=== PATIENT | male | born 1965 | race Caucasian/White ===

== ENCOUNTER → 2024-03-21 15:09 | Outpatient (BNVA) | payer MEDICARE, MEDICAID, SELFPAY | PROVIDERS: Family Provider Family Medicine; PCP Nurse Practitioner Family; Visit Provider Nurse Practitioner Family | DX: Z12.5 Encounter for screening for malignant neoplasm of prostate (principal); E11.9 Type 2 diabetes mellitus without complications; F31.9 Bipolar disorder, unspecified | CPT/HCPCS: 80053; 80061; 80164; 81000; 82607; 82746; 83036; 84443; 85025; G0103 ==

== ENCOUNTER → 2024-04-30 16:06 | Outpatient (BNVA) | payer MEDICARE, MEDICAID, SELFPAY | PROVIDERS: Family Provider Family Medicine; PCP Nurse Practitioner Family; Visit Provider Nurse Practitioner Family | DX: R39.9 Unspecified symptoms and signs involving the genitourinary system (principal) | CPT/HCPCS: 81000 ==

== ENCOUNTER → 2024-06-19 11:45 | Outpatient (BNVA) | payer MEDICARE, MEDICAID, SELFPAY | PROVIDERS: Family Provider Family Medicine; PCP Nurse Practitioner Family; Visit Provider Nurse Practitioner Family | DX: E11.9 Type 2 diabetes mellitus without complications (principal); E03.9 Hypothyroidism, unspecified | CPT/HCPCS: 80053; 80061; 83036; 84443; 85025 ==

== ENCOUNTER 2024-07-09 13:49 | Emergency (ER) | payer MEDICARE, MEDICAID, SELFPAY ==
[2024-07-09] VITALS (7 sets, daily range): BP systolic 119–139; BP diastolic 68–70; PULSE 62–85; RESP 16; TEMP 36.8; O2SAT 94–98; BMI 25.1
--- NOTE | 2024-07-09 14:09 | XR_ITS ---
WS: [id number] Exam: XR chest 1V portable [id number] Date/Time of Exam: 07/09/2024 2:16 PM Reason For Exam: weakness, hypotension No priors. The lungs are fully expanded. Eventration of the RIGHT diaphragm. No pleural effusion or pneumothorax. Normal cardiomediastinal silhouette. A tracheostomy tube is noted. Degenerative change and mild dextroscoliosis of the T-spine. XR/XR chest 1V portable [id number] IMPRESSION: 1. No acute cardiopulmonary finding.
--- NOTE | 2024-07-09 14:10 | ECG_ITS ---
[facility] Test Date: 2024-07-09 Pat Name: Travon Michelle Department: Room: Gender: Male Gynecological Assistant: : 1965 Requested By: Jigna Banerjee Order Number: [id number] Morales MD: Will Teran M.D. Measurements Intervals [place] Rate: 63 P: 42 GA: 146 QRS: -20 QRSD: 91 T: 15 QT: 401 QTc: 411 Interpretive Statements SINUS RHYTHM No previous ECG available for comparison Electronically Signed On 07-09-2024 14:55:22 CDT by Will Teran M.D. [id number] [id number]
[2024-07-09 14:16] LABS: Basophils % 0.4 %; Eosinophils % 0.7 %; Hematocrit 36.6 % (37-53); Lymphocytes # 0.9 10^3/uL (0.8-4.8); Lymphocytes % 15.7 %; Mean Corpuscular HGB Conc 34.4 g/dL (30-55); Mean Corpuscular Hemoglobin 32.9 pg (27-33); Mean Corpuscular Volume 95.6 fl (82-101); Mean Platelet Volume 9.2 fL (7.4-10.4); Monocytes # 0.5 10^3/uL (0.2-0.9); Neutrophils % 73.8 %; Nucleated Red Blood Cells % 0 %; Platelet Count 186 10^3/cmm (157-399); Red Blood Count 3.83 10^6/uL (3.85-5.65); Red Cell Distribution Width 13.2 % (12.1-15.1); White Blood Count 5.55 10^3/uL (3.29-11.43)
--- NOTE | 2024-07-09 14:20 | CT_ITS ---
WS: [id number] CT HEAD NONCONTRAST HISTORY: syncope? TECHNIQUE: Contiguous axial imaging performed through the brain. Bone and soft tissue windows. Sagittal and coronal reformats reviewed. All CT scans at [facility] use at least one of these dose optimization techniques: automated exposure control; mA and/or kV adjustment per patient size (includes targeted exams where dose is matched to clinical indication); or iterative reconstruction. DLP: 1108.48 mGy.cm COMPARISON: None available. No acute intracranial hemorrhage, midline shift or mass effect. Mild atrophy and small vessel disease. No acute infarct. Ventricles: Normal size with no hydrocephalus. No inferior displacement of the cerebellar tonsils. Paranasal sinuses: Tiny mucous retention cyst or polyp in the LEFT maxillary sinus. Mastoid air cells: Well pneumatized. Calvarium and scalp: Hyperostosis frontalis interna. CT/CT head wo con* [id number] IMPRESSION: 1. No acute intracranial hemorrhage or edema. 2. Mild atrophy and small vessel disease.
[2024-07-09 14:38] LABS: Troponin(5th) Baseline 13 ng/L (0-15)
[2024-07-09 14:46] LABS: Alanine Aminotransferase 15 U/L (0-41); Albumin Level 3.7 g/dL (3.5-5.2); Alkaline Phosphatase 46 U/L (40-130); Anion Gap 17.8 (5-19); Aspartate Amino Transferase 14 U/L (0-40); Blood Urea Nitrogen 9 mg/dL (8-23); Calcium 9.1 mg/dL (8.5-10.5); Carbon Dioxide 24 mmol/L (22-29); Chloride 96 mmol/L (98-107); Creatinine Clr Calc Pharmacy 100.4842; Globulin 2.3 g/dL (1.3-4.6); Glomerular Filtration Rate 98.3 mL/min (90-130); Glucose 258 mg/dL (65-115); NT Pro B Type Natriuretic Pept < 36 pg/mL (0-125); Osmolality Calculated 284 mOsm/kg (285-295); Potassium 4.8 mmol/L (3.5-5.1); Sodium 133 mmol/L (136-145); Thyroid Stimulating Hormone 0.48 uIU/mL (0.27-4.20); Total Bilirubin 0.3 mg/dL (0.15-1.2)
--- NOTE | 2024-07-09 15:17 | W.ED.SYNCOPE ---
HPI - Syncope General: Chief Complaint: Syncope Stated Complaint: kiara - low blood pressure Time Seen by Provider: 07/09/24 14:06 Source: patient, family (mother) and other (caregiver) Mode of arrival: EMS Limitations: other (cognitive delay) History of Present Illness: Patient is a 59-year-old male who comes from [facility] here with his mother who is his guardian as well as care staff for evaluation of a presyncopal episode. PMH is significant for cognitive delay, hypertension, diabetes, tracheostomy, bipolar, sleep apnea. Care staff states today while eating he seemed to slump over in his chair and was minimally responsive for a few seconds. He then came to and stated he needed to use the bathroom. Staff states she was walking him to the bathroom when he began feeling weak thus she lowered him to the ground and contacted 911. She did check the patient's blood sugar as he is a diabetic and sugars were 180s. Per EMS report, when they got to the patient's home he was hypotensive with blood pressures 80s/40s and heart rate in the 50s. He was reportedly bolused 700 mL of NS and given 1 mg of atropine. Upon arrival patient is in no acute distress with normal vital signs. He is at mental baseline per mother and caregiver. MD complaint: felt faint and almost passed out Onset (ago): hour(s) -: minutes(s) Witnessed: Yes - by Bystander (care staff) Context: at rest Injuries sustained associated with event: none Associated symptoms: Deny abdominal pain, chest pain, fever(s), headache(s) or lightheadedness Treatments prior to arrival: IV fluids and other (atropine) Related Data Home Medications ?Medication ?Instructions ?Recorded ?Confirmed hydroxyzine HCl 25 mg tablet 25 mg PO BID PRN ANXIETY 07/09/24 07/09/24 lisinopril 10 mg tablet 10 mg PO QAM 07/09/24 07/09/24 Previous Rx's ?Medication ?Instructions ?Recorded acetaminophen 325 mg capsule 650 mg (2 x 325 mg) PO Q4H PRN as 03/21/24 needed for pain or elevated temperature #60 caps benztropine 1 mg tablet 1 mg PO BID #60 tabs 03/21/24 calcium 600 mg (as 1 tab PO BID #180 tabs 03/21/24 carbonate)-vitamin D3 10 mcg (400 unit) tablet (Calcium with Vitamin D) divalproex 500 mg tablet,extended 500 mg PO BID #60 tabs 03/21/24 release 24 hr docusate sodium 100 mg capsule 100 mg PO DAILY #90 caps 03/21/24 fluticasone propionate 50 2 spray intranasal DAILY #16 grams 03/21/24 mcg/actuation nasal spray,suspension (Allergy Relief (fluticasone)) furosemide 20 mg tablet (Lasix) 20 mg PO QAM #90 tabs 03/21/24 levothyroxine 88 mcg capsule 88 mcg PO DAILY #90 caps 03/21/24 menthol 0.44 %-zinc oxide 20.6 % 1 applic topical QID PRN skin 03/21/24 topical ointment (Calmoseptine) irritation #113 grams metformin 1,000 mg tablet 1,000 mg PO BID #180 tabs 03/21/24 olanzapine 7.5 mg tablet 7.5 mg PO DAILY #90 tabs 03/21/24 potassium chloride 10 mEq 10 meq PO DAILY #90 tabs 03/21/24 tablet,extended release sodium chloride 0.9 % irrigation 1 irrig irrigation DAILY PRN trach 03/21/24 solution care #12,000 mL ziprasidone HCl 40 mg capsule 40 mg PO ONCE #30 caps 03/21/24 ziprasidone HCl 80 mg capsule 80 mg PO ONCE #30 caps 03/21/24 blood sugar diagnostic (True #300 ea 04/06/24 Metrix Glucose Test Strip) blood-glucose meter (True Metrix #1 ea 04/06/24 Glucose Meter) lancets 31 gauge (Ultra Thin #300 ea 04/06/24 Lancets) hydrogen peroxide 3 % solution 1 applic topical DAILY PRN trach 06/04/24 care #473 mL polyethylene glycol 3350 17 17 g PO DAILY PRN constipation 07/04/24 gram/dose oral powder (Miralax) #510 grams Allergies Allergy/AdvReac Type Severity Reaction Status Date / Time metronidazole (From Flagyl) Allergy Unknown Verified 07/04/24 10:23 carbamzepine Allergy Unknown Uncoded 07/04/24 10:23 ceclor Allergy Unknown Uncoded 07/04/24 10:23 Review of Systems Const: Denies: fever(s), chills, body aches, fatigue or malaise Eyes: Denies: change in vision, blurry vision, floaters or seeing flashes ENMT: Denies: throat pain, odynophagia, ear or mastoid pain, nasal discharge, nasal congestion or sinus pain Card: Reports: pre-syncope; Denies: chest pain, palpitations, edema, lightheadedness or dyspnea on exertion Resp: Denies: dyspnea, productive cough or non-productive cough GI: Denies: abdominal pain, vomiting, diarrhea or change in bowel habits : Denies: flank pain, dysuria or hematuria Musc: Denies: neck pain, back pain, extremity pain, extremity swelling, joint pain or joint swelling Skin/Breast: Denies: rash Neuro: Reports: other (at baseline per mother/caregiver); Denies: headache(s), numbness in extremities, weakness in extremities, sensory changes, lack of coordination, dizziness, confusion, behavioral changes or Slurred speech present [facility] ED PFSH: Medical History Type 2 diabetes mellitus Hypertension Hx of sleep apnea Tracheostomy tube present Bipolar affective disorder Disruptive behavior disorder Chronic allergic rhinitis Social History Smoking and tobacco/nicotine status: current every day tobacco/nicotine user (chew pouches) Physical Exam Const: COMMON NORMALS: no acute distress, average body habitus, healthy appearing, alert and well nourished GENERAL APPEARANCE: cooperative OTHER: at mental baseline per mother and caregiver HENMT: COMMON NORMALS: normocephalic and atraumatic HEAD & SCALP: normal to inspection, normocephalic and atraumatic FACE & SINUS: normal facial exam Eye: GENERAL EYE: appearance normal, both eyes and all related structures and normal light reflex DIRECT OPHTHALMOSCOPY: Yes normal light reflex Neck/C-Spine: COMMON NORMALS: full ROM, no lymphadenopathy, supple and no meningeal signs GENERAL: Yes normal visual inspection and Yes other (trach appears normal) Chest: COMMONS NORMALS: normal inspection of the chest and normal palpation of entire chest wall Resp: COMMON NORMALS: normal respiratory effort and clear to auscultation bilaterally AUSCULTATION: clear to auscultation bilaterally Cardio: COMMON NORMALS: regular rate and regular rhythm RATE: regular rate RHYTHM: regular rhythm GI: COMMON NORMALS: Normal to inspection, nondistended, normoactive bowel sounds present, Soft to palpation, non-tender, No hepatosplenomegaly present and no masses PALPATION: Yes Soft to palpation and Yes No hepatosplenomegaly present : COMMON NORMALS: Yes no CVA tenderness BLADDER/KIDNEY EXAM: Yes no CVA tenderness Back/Pelvis: COMMON NORMALS: no CVA tenderness and thoracic and lumbar spine normal to inspection Extremity: COMMON NORMALS: normal to inspection, capillary refill normal, no clubbing, cyanosis or edema, no calf tenderness and no pedal edema GENERAL: Yes normal exam except as noted Neuro: DAMEON COMA SCALE: document GCS findings [place] coma scale eye opening: Spontaneous [place] coma scale verbal response: Orientated Dameon coma scale motor response: Obey commands [place] coma scale total score: 15 COMMON NORMALS: moves all extremities, no focal motor deficits and no sensory deficits noted SENSORIUM/ORIENTATION: Yes alert MENINGEAL SIGNS: Yes no meningeal signs Skin: COMMON NORMALS: no rashes or lesions noted GENERAL SKIN EXAM: no rashes or lesions noted Course Vital Signs: Vital signs: Vital Signs Temperature 98.2 F 07/09/24 13:59 Pulse Rate 65 07/09/24 16:00 Respiratory Rate 16 07/09/24 16:00 Blood Pressure 132/68 07/09/24 15:03 Pulse Oximetry 98 07/09/24 15:03 Oxygen Delivery Me thod Room Air 07/09/24 14:47 Oxygen Flow Rate 2 07/09/24 13:59 MDM - Syncope Medical Decision Making Patient has been completely asymptomatic with normal vitals throughout his ED stay. His blood work overall is unremarkable. EKGs are nonconcerning. Baseline and repeat troponins are normal. Normal BNP. TSH is normal. CXR and head CT showing no acute findings. He will be allowed discharge with recommendations to follow-up with his primary care provider later this week. Medical Records I reviewed the patient's medical records. Lab Data I reviewed the patient's lab results. 07/09/24 14:10 07/09/24 14:10 Radiology Impressions Chest X-Ray 07/09/24 14:09 IMPRESSION: 1. No acute cardiopulmonary finding. Head CT 07/09/24 14:20 IMPRESSION: 1. No acute intracranial hemorrhage or edema. 2. Mild atrophy and small vessel disease. Laboratory Results WBC 5.55 10^3/uL (3.29-11.43) 07/09/24 14:10 RBC 3.83 10^6/uL (3.85-5.65) L 07/09/24 14:10 Hgb 12.60 g/dL (11.27-16.99) 07/09/24 14:10 Hct 36.6 % (37-53) L 07/09/24 14:10 MCV 95.6 fl (82-101) 07/09/24 14:10 MCH 32.9 pg (27-33) 07/09/24 14:10 MCHC 34.4 g/dL (30-55) 07/09/24 14:10 RDW 13.2 % (12.1-15.1) 07/09/24 14:10 Plt Count 186 10^3/cmm (157-399) 07/09/24 14:10 MPV 9.2 fL (7.4-10.4) 07/09/24 14:10 Neut % (Auto) 73.8 % 07/09/24 14:10 Lymph % (Auto) 15.7 % 07/09/24 14:10 Marion % (Auto) 9.0 % 07/09/24 14:10 Eos % (Auto) 0.7 % 07/09/24 14:10 Baso % (Auto) 0.4 % 07/09/24 14:10 Neut # (Auto) 4.10 10^3/uL (1.8-7.7) 07/09/24 14:10 Lymph # (Auto) 0.9 10^3/uL (0.8-4.8) 07/09/24 14:10 Marion # (Auto) 0.5 10^3/uL (0.2-0.9) 07/09/24 14:10 Eos # (Auto) 0.0 10^3/uL (0.0-0.8) 07/09/24 14:10 Baso # (Auto) 0.0 10^3/uL (0.0-0.1) 07/09/24 14:10 Nucleated RBC % (auto) 0 % 07/09/24 14:10 Nucleated RBCs # 0.0 /100WBC 07/09/24 14:10 Sodium 133 mmol/L (136-145) L 07/09/24 14:10 Potassium 4.8 mmol/L (3.5-5.1) 07/09/24 14:10 Chloride 96 mmol/L (98-107) L 07/09/24 14:10 Carbon Dioxide 24 mmol/L (22-29) 07/09/24 14:10 Anion Gap 17.8 (5-19) 07/09/24 14:10 BUN 9 mg/dL (8-23) 07/09/24 14:10 Creatinine 0.8 mg/dL (0.7-1.2) 07/09/24 14:10 GFR Calculation 98.3 mL/min (90-130) 07/09/24 14:10 Glucose 258 mg/dL (65-115) H 07/09/24 14:10 Calculated Osmolality 284 mOsm/kg (285-295) L 07/09/24 14:10 Calcium 9.1 mg/dL (8.5-10.5) 07/09/24 14:10 Total Bilirubin 0.3 mg/dL (0.15-1.2) 07/09/24 14:10 AST 14 U/L (0-40) 07/09/24 14:10 ALT 15 U/L (0-41) 07/09/24 14:10 Alkaline Phosphatase 46 U/L (40-130) 07/09/24 14:10 Troponin T Baseline 13 ng/L (0-15) 07/09/24 14:10 Troponin T 120 Minute 12.03 ng/L (0-15) 07/09/24 16:11 Delta Troponin T -0.97 ABS# (0-10) L 07/09/24 16:11 NT-Pro-B Natriuret Pep < 36 pg/mL (0-125) 07/09/24 14:10 Total Protein 6.0 g/dL (6.6-8.7) L 07/09/24 14:10 Albumin 3.7 g/dL (3.5-5.2) 07/09/24 14:10 Globulin 2.3 g/dL (1.3-4.6) 07/09/24 14:10 TSH 0.48 uIU/mL (0.27-4.20) 07/09/24 14:10 Urine Color Yellow (Yellow) 07/09/24 15:19 Urine Appearance Clear (CLEAR) 07/09/24 15:19 Urine pH 7.5 (5-7) 07/09/24 15:19 Ur Specific [place] 1.008 (1.005-1.030) 07/09/24 15:19 Urine Protein Trace (Negative) A 07/09/24 15:19 Urine Glucose (UA) 1+ (Normal) H 07/09/24 15:19 Urine Ketones Negative (Negative) 07/09/24 15:19 Urine Blood Negative (Negative) 07/09/24 15:19 Urine Nitrate Negative (Negative) 07/09/24 15:19 Urine Bilirubin Negative (Negative) 07/09/24 15:19 Urine Urobilinogen 0.2 mg/dL (Negative) 07/09/24 15:19 Ur Leukocyte Esterase Negative (Negative) 07/09/24 15:19 Urine RBC 0-2 /hpf (0-2) 07/09/24 15:19 Urine WBC 0-5 /hpf (0-5) 07/09/24 15:19 Ur Squamous Epith Cells 0-5 /hpf (0-5) 07/09/24 15:19 Amorphous Sediment Not Reportable 07/09/24 15:19 Urine Bacteria None seen /hpf (NONE) 07/09/24 15:19 Hyaline Casts 1.65 /lpf 07/09/24 15:19 Urine Opiates Screen Negative ng/mL (Negative) 07/09/24 15:19 Ur Barbiturates Screen Negative ng/mL (Negative) 07/09/24 15:19 Ur Phencyclidine Scrn Negative ng/mL (Negative) 07/09/24 15:19 Ur Amphetamines Screen Negative ng/mL (Negative) 07/09/24 15:19 U Benzodiazepines Scrn Negative ng/mL (Negative) 07/09/24 15:19 Urine Cocaine Screen Negative ng/mL (Negative) 07/09/24 15:19 U Marijuana (THC) Screen Negative ng/mL (Negative) 07/09/24 15:19 All radiology interpretation(s) finalized by discharge Discharge Plan Discharge Patient Disposition: Home Clinical Impression: Vasovagal syncope Condition: Stable Prescriptions: No Action calcium carbonate-vitamin D3 [Calcium with Vitamin D] 600 mg-10 mcg (400 unit) tablet 1 tab PO BID Qty: 180 1RF polyethylene glycol 3350 [Miralax] 17 gram/dose powder 17 g PO DAILY PRN (Reason: constipation) Qty: 510 5RF benztropine 1 mg tablet 1 mg PO BID Qty: 60 0RF Rx Instructions: Take 1 tablet by mouth 2 times a day for EPS divalproex 500 mg tablet extended release 24 hr 500 mg PO BID Qty: 60 0RF Rx Instructions: Take 1 tablet by mouth 2 times a day for bipolar affective disorder docusate sodium 100 mg capsule 100 mg PO DAILY Qty: 90 1RF Rx Instructions: Take 1 capsule by mouth every evening levothyroxine 88 mcg capsule 88 mcg PO DAILY Qty: 90 1RF Rx Instructions: take 1 tablet by mouth every day for hypothyroidism metformin 1,000 mg tablet 1,000 mg PO BID Qty: 180 1RF olanzapine 7.5 mg tablet 7.5 mg PO DAILY Qty: 90 1RF Rx Instructions: Take 1 tablet by mouth at bedtime ziprasidone HCl 80 mg capsule 80 mg PO ONCE Qty: 30 0RF Rx Instructions: give with food (meal/snack) at bedtime ziprasidone HCl 40 mg capsule 40 mg PO ONCE Qty: 30 0RF Rx Instructions: give with food (meal/snack)in am furosemide [Lasix] 20 mg tablet 20 mg PO QAM Qty: 90 1RF Rx Instructions: 1 tablet every am for edema potassium chloride 10 mEq tablet extended release 10 meq PO DAILY Qty: 90 1RF Rx Instructions: 1 tablet by mouth every am for potassium supplement fluticasone propionate [Allergy Relief (fluticasone)] 50 mcg/actuation spray,suspension 2 spray intranasal DAILY Qty: 16 5RF Rx Instructions: administer into each nostril menthol-zinc oxide [Calmoseptine] 0.44-20.6 % ointment 1 applic topical QID PRN (Reason: skin irritation) Qty: 113 5RF acetaminophen 325 mg capsule 650 mg PO Q4H PRN (Reason: as needed for pain or elevated temperature) Qty: 60 5RF sodium chloride 0.9 % solution 1 irrig irrigation DAILY PRN (Reason: trach care) Qty: 49077 5RF Rx Instructions: Use hydrogen peroxide & sodium cl for trach care as needed (DME) True Metrix Glucose Test Strip Strip See Rx Instructions .Route Qty: 300 3RF Rx Instructions: As directed (DME) blood-glucose meter [True Metrix Glucose Meter] Misc See Rx Instructions .Route Qty: 1 0RF Rx Instructions: As directed (DME) Ultra Thin Lancets 31 gauge misc See Rx Instructions .Route Qty: 300 3RF Rx Instructions: As directed hydrogen peroxide 3 % solution 1 applic topical DAILY PRN (Reason: trach care) Qty: 473 5RF Rx Instructions: Use with sodium chloride for trach care a needed. hydroxyzine HCl 25 mg tablet 25 mg PO BID PRN (Reason: ANXIETY ) lisinopril 10 mg tablet 10 mg PO QAM Rx Instructions: take one tab by mouth in am Discharge Orders: Discharge ED (Routine); Ordered 07/09/24 Ordered By: Jigna Banerjee Referrals: Florinda Rios FNP-C [Primary Care Provider, Family Practice] Activity Restrictions/Additional Instructions: As we discussed, blood work urine, and imaging including chest x-ray and head CT were unremarkable. Please follow-up with primary care later this week for reevaluation. You may return to the emergency department at anytime for any further concerns you may have. Print Language: Khmer Coding Level of Care Code ED Methane Gas Collection System Operator for Bret Wise
[2024-07-09 15:28] LABS: Bilirubin Urine Negative (Negative); Blood Urine Negative (Negative); Glucose Urine UA 1+ (Normal); Ketones Urine Negative (Negative); Leukocyte Esterase Urine Negative (Negative); Nitrate Urine Negative (Negative); Protein Urine Trace (Negative); Specific Gravity, Urine 1.008 (1.005-1.030); Urine Appearance Clear (CLEAR); Urine Color Yellow (Yellow); Urobilinogen Urine 0.2 mg/dL (Negative); pH Urine 7.5 (5-7)
[2024-07-09 15:34] LABS: Add Urine Microscopic? YES; Bacteria Urine None Seen /hpf; Hyaline Casts Urine 1.65 /lpf; RBC Urine 0-2 /hpf (0-2); Squamous Epithelial Cell Urine 0-5 /hpf (0-5); WBC Urine 0-5 /hpf (0-5)
[2024-07-09 15:35] LABS: Amphetamines Screen Urine Negative (Negative); Barbiturates Screen Urine Negative (Negative); Benzodiazepines Screen Urine Negative (Negative); Cocaine Screen Urine Negative (Negative); Opiate Screen Urine Negative (Negative); PCP Screen Urine Negative (Negative); THC Screen Urine Negative (Negative)
[2024-07-09 15:39] LABS: Add Urine Culture? No
--- NOTE | 2024-07-09 16:10 | ECG_ITS ---
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
[2024-07-09 16:43] LABS: Troponin 5 2HR 12.03 ng/L (0-15)
[2024-07-09 16:44] LABS: Troponin 5 2HR Delta -0.97 ABS# (0-10)
== END 2024-07-09 17:19 | disposition home or self-care (01) ==
PROVIDERS: Emergency Provider Physician Assistant; PCP Nurse Practitioner Family
DX: R55 Syncope and collapse (principal); Z79.84 Long term (current) use of oral hypoglycemic drugs; F17.290 Nicotine dependence, other tobacco product, uncomplicated; E11.9 Type 2 diabetes mellitus without complications; I10 Essential (primary) hypertension
CPT/HCPCS: 70450; 71045; 80053; 80306; 81001; 83880; 84443; 84484; 85025; 93005; 99285

== ENCOUNTER → 2024-08-16 09:42 | Outpatient (BNVA) | payer MEDICARE, MEDICAID, SELFPAY | PROVIDERS: PCP Nurse Practitioner Family; Visit Provider Nurse Practitioner Family | DX: J02.9 Acute pharyngitis, unspecified (principal) | CPT/HCPCS: 87071; 87880 ==

== ENCOUNTER → 2024-09-04 10:19 | Outpatient (BNVA) | payer MEDICARE, MEDICAID, SELFPAY | PROVIDERS: PCP Nurse Practitioner Family; Visit Provider Nurse Practitioner Family | DX: E11.9 Type 2 diabetes mellitus without complications (principal); E03.9 Hypothyroidism, unspecified; Z93.0 Tracheostomy status; J98.6 Disorders of diaphragm | CPT/HCPCS: 71046; 80053; 80061; 80164; 81000; 82043; 83036; 84443; 85025 ==

== ENCOUNTER 2024-09-15 22:44 | Emergency (ER) | payer MEDICARE, MEDICAID, SELFPAY ==
--- OUTSIDE RECORDS SUMMARY | 2024-09-15 22:50 | XMS_ITS | Clinical Summary ---
Author Organization [facility] Address [address] [place] [address] Phone Care Team Providers Care Aoc Director Combat Operations Officer Name Role Phone System, Pcp Not In Primary Care Provider Unavail able Allergies Active Allergy Reactions Criticality Noted Date Comments Carbamazepine Rash Low 04/27/2016 Cefaclor Unknown 12/07/2017 Metronidazole Rash Low 04/27/2016 Encounters Date Type Department Care Team Description 07/19/2024 Orders Only [facility] Neurology [address] [place] [address] Florinda Rios Confusion (Primary Dx) 07/17/2024 Orders Only [facility] Neurology [address] [place] [id number] System, Pcp Not In Confusion; Disorientation 06/21/2024 3:36 PM CDT - 06/21/2024 6:32 PM CDT Emergency [facility] Emergency Department [address] [place] [address] Emilio Castrejon MD Confusion; Difficulty urinating Discharge Disposition: Home 06/21/2024 Travel from Last 3 Months Social History Tobacco Use Types Packs/Day Years Used Date Smoking Tobacco: Never Smokeless Tobacco: Never Tobacco Cessation:Counseling Given: Not Answered Alcohol Use Standard Drinks/Week Comments Never 0 (1 standard drink = 0.6 oz pur e alcohol) Intimate Partner Safety Answer Date Rec orded Feels Unsafe at Home or Work/School Unrecognized value 06/21/2024 Feels Threatened by Someone Unrecognized value 0 06/21/2024 Does Anyone Try to Keep You From Having Contact with Others or Doing Things Outside Your Home? Unrecognized value 06/21/2024 Physical Signs of Abuse Present Unrecognized derek ue 06/21/2024 Intimate Partner Safety Not on file 06/22/19 25 Sex and Gender Information Value Date Recorded Sex Assigned at Not on file Legal Sex Male 2:13 PM CDT Gender Identity Not on file Sexual Orientation Not on file Last Filed Vital Signs Vital Sign Reading Time Taken Comments Blood Pressure 134/81 06/21/2024 2:48 PM CDT Pulse 74 06/21/2024 2:48 PM CDT Temperature 37.2 C (98.9 F) 06/21/2024 2:48 PM CDT Respiratory Rate 18 06/21/2024 2:48 PM CDT Oxygen Saturation 100% 06/21/2024 2:48 PM CDT Inhaled Oxygen Concentration - - Weight 95.3 kg (210 lb) 06/21/2024 2:48 PM CDT Height 175.3 cm (5' 9 ) 06/21/2024 2:48 PM CDT Body Mass Index 31.01 06/21/2024 2:48 PM CDT Plan of Treatment Health Maintenance Due Date Last Done Comments Colonoscopy Every 6 Months 1963 Colorectal Cancer Screening Annual FOBT/FIT Test 03/03 Colorectal Cancer Screening Cologuard 1965 Colorectal Cancer Screening Flex Sigmoidoscopy 964 Annual Depression Screening 1974 Hepatitis C Antibody Screen 1981 Medicare Subsequent AWV [id number] 08/28/1985 DTap/Tdap/Td Vaccines (1 - Tdap) 05/13/1998 05/12/18 99 Colorectal CA Screen 10 Year Colonoscopy 2008 Colorectal Cancer Screening 2008 Zoster Vaccine (Shingles) (1 of 2) 2013 Influenza Vaccine 10/29/2024 RSV Immunization Pa tients or 60+ Years (1 - 1-dose 75+ series) 2038 Pneumococcal Vaccine Age 50+ Completed 09/24/2021 Procedures Procedure Name Priority Date/Time Associated Diagnosis Comments CT HEAD WO CONTRAST STAT 06/21/2024 5 :35 PM CDT URINALYSIS WITH MICROSCOPIC AND CULTURE IF POSITIVE STAT 06/21/2024 3:46 PM CDT from Last 3 Months Results * CT Head Without Contrast (06/21/2024 5:35 PM CDT) Anatomical Region Laterality Modality Head Computed Tomogra phy 06/21/2024 5:38 PM CDT Impressions 06/21/2024 5:39 PM CDT IMPRESSION: No acute intracranial abnormality. Narrative 06/21/2024 5:39 PM CDT PATIENT: ALEAH HOLLINGSWORTH EXAM: CT HEAD WO CONTRAST CLINICAL INFORMATION: Mental status change, unknown cause, AMS COMPARISON: None TECHNIQUE: Dose reduction techniques were utilized for this exam including automated exposure control, adjustments to mA and/or kV according to patient size, and iterative reconstruction techniques. FINDINGS: Intracranial Hemorrhage: None. 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 Age-appropriate generalized volume loss. Extra-Axial Spaces: Normal for age. Ventricles: Normal for age. Orbits: Normal. Paranasal Sinuses: Normal. Mastoid Air Cells: Normal. Skull/Soft Tissues: Normal. Procedure Note Tyrone Marrero, DO - 06/21/2024 PATIENT: ALEAH HOLLINGSWORTH EXAM: CT HEAD WO CONTRAST CLINICAL INFORMATION: Mental status change, unknown cause, AMS COMPARISON: None TECHNIQUE: Dose reduction techniques were utilized for this exam including automated exposure control, adjustments to mA and/or kV according to patient size, and iterative reconstruction techniques. FINDINGS: Intracranial Hemorrhage: None. 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 Age-appropriate generalized volume loss. Extra-Axial Spaces: Normal for age. Ventricles: Normal for age. Orbits: Normal. Paranasal Sinuses: Normal. Mastoid Air Cells: Normal. Skull/Soft Tissues: Normal. IMPRESSION: No acute intracranial abnormality. us Emilio Castrejon MD CT IMG ORDERABLES Final Result * (ABNORMAL) UA Auto Microscopic with CX if Indicated (06/21/2024 3:46 PM CDT) Color UA Yellow Yellow 06/21/2024 4:07 PM CDT [facility] Clarity UA Clear Clear 06/21/2024 4:07 PM [facility] pH UA 7.0 5.0 - 8.0 06/21/2024 4:07 PM [facility] Specific [place] UA 1.015 1.005 - 1.030 06/21/2024 4:07 PM [facility] Glucose UA 2+(A) Negative 06/21/2024 4:07 PM [facility] Ketones UA Negative Negative 06/21/2024 4:07 PM [facility] Bilirubin UA Negative Negative 06/21/2024 4:07 PM [facility] Protein UA Negative Negative 06/21/2024 4:07 PM [facility] Leukocyte Esterase UA Negative Negative 06/21/2024 4:07 PM [facility] Nitrite UA Negative Negative 06/21/2024 4:07 PM [facility] Blood UA Negative Negative 06/21/2024 4:07 PM [facility] Urobilinogen UA 0.2 0.2 - 1.0 E.U./dL 06/21/2024 4:07 PM [facility] RBC UA 3.2 <=23.0 RBC/ul 06/21/2024 4:07 PM [facility] WBC UA 4.2 <=28.0 WBC/ul 06/21/2024 4:07 PM [facility] Squamous Epithelial Cells UA <1.4 <=31.0 Epi/ul 06/21/2024 4:07 PM [facility] Hyaline Casts UA <1.41 <=2.00 Nuclear Equipment Sales Engineer/ul 06/21/2024 4:07 PM [facility] Bacteria UA 9.1 <=941.0 Arturo/ul 06/21/2024 4:07 PM [facility] Urine URINE SPECIMEN OBTAINED BY CLEAN CATCH PROCEDURE / Unknown Collection / Unknown 06/21/2024 3:46 PM CDT 06/21/2024 3:47 PM CDT us Emilio Castrejon MD URINE ORDERABLES Final R esult [facility] [place] [address], [place] [address] from Last 3 Months Insurance [place]ICAID [place] Care Teams Aoc Director Combat Operations Officer Relationship Specialty Start Date End Date System, Pcp Not In PCP - General 07/19/24
--- OUTSIDE RECORDS SUMMARY | 2024-09-15 22:50 | XMS_ITS | Encounter Summary ---
Author Organization [facility] Address [address] [facility] [place] [address] Phone Care Team Providers Care Legal Aid Name Role Phone System, Pcp Not In Primary Care Provider Unavail able Encounter Details Date Type Department Care Team (Late st Contact Info) Description 07/17/2024 Orders Only [facility] Neurology [address] [place] [address] System, Pcp Not In Confusion; Disorientation Social History Tobacco Use Types Packs/Day Years Used Date Smoking Tobacco: Never Smokeless Tobacco: Never Alcohol Use Standard Drinks/Week Comments Never 0 [...] Intimate Partner Safety Not on file 06/22/19 Sex and Gender Information Value Date Recorded Sex Assigned at Not on file Legal Sex Male 2:13 PM CDT Gender Identity Not on file Sexual Orientation Not on file documented as of this encounter Plan of Treatment Not on file documented as of this encounter Visit Diagnoses Diagnosis Confusion Unspecified psychosis Disorientation Other general symptoms documented in this encounter Care Teams Legal Aid Relationship Specialty Start Date End Date System, Pcp Not In PCP - General 07/19/24 documented as of this encounter
--- OUTSIDE RECORDS SUMMARY | 2024-09-15 22:50 | XMS_ITS | Data Portability ---
Author Organization [facility]UL[facility] Denis Hubbard [facility] Address [address] [facility] [facility] [address] [place] [address] Assessment No assessment recorded. Plan of Treatment Reminders Order Date Submit Date Provider Last Modified By Organization Details Last Modified Time Details Appointments None recorded. Lab urinalysis , dipstick 2024 025 [email or web address] [facility] ([facility]), [address] [place], [address], 17:49:04 culture, urine 2024 025 [facility], [address] [place] [address], [facility] [address] [place], [address], 22:46:30 Referral None recorded. Procedures None recorded. Surgeries None recorded. Imaging None recorded. Medication Orders None recorded. Patient TargetsNo targets recorded. Patient InstructionsNo instructions recorded. Reason for Referral None Reported. Results Created Date Observation Date Name Description Value Unit Range Abnormal Flag Note LastModifiedBy Organization Detail LastModifiedTime 06/06/1906/05/2024 urina lysis , dipst ick Leukocytes Negati ve Not Available [facility] ([facility]) [address] [place], [address], 06/05/2024 17:29:09 06/06/19 25 06/05/2024 urina lysis , dipst ick Nitrite negati ve Not Available [facility] ([facility]) [address] [place], [address], 06/05/2024 17:29:09 06/06/19 25 06/05/2024 urina lysis , dipst ick Urobilinogen .2 Not Available [facility] ([facility]) [address] [place], [address], 06/05/2024 17:29:09 06/06/19 25 06/05/2024 urina lysis , dipst ick Protein Negati ve Not Available [facility] ([facility]) [address] [place], [address], 06/05/2024 17:29:09 06/06/19 25 06/05/2024 urina lysis , dipst ick pH 6.0 Not Available [facility] ([facility]) [address] [place], [address], 06/05/2024 17:29:09 06/06/19 25 06/05/2024 urina lysis , dipst ick Blood Negati ve Not Available [facility] ([facility]) [address] [place], [address], 06/05/2024 17:29:09 06/06/19 25 06/05/2024 urina lysis , dipst ick Specific Tebbetts 1.025 Not Available [facility] ( [facility]) [address] [place], [address], 06/05/2024 17:29:09 06/06/19 25 06/05/2024 urina lysis , dipst ick Ketone Trace Not Available [facility] ([facility]) [address] [place], [address], 06/05/2024 17:29:09 06/06/19 25 06/05/2024 urina lysis , dipst ick Bilirubin Negati ve Not Available [facility] ([facility]) [address] [place], [address], 06/05/2024 17:29:09 06/06/19 25 06/05/2024 urina lysis , dipst ick Glucose 500 Not Available [facility] ([facility]) [address] [place], [address], 06/05/2024 17:29:09 06/07/19 25 06/07/2024 CULTU RE, URINE , ROUTI NE culture, urine, routine SEE NOTE CULTU RE, URINE , ROUTI NE Micro Numbe r: [id number] Test Statu s: Final Speci men Sourc e: Urine Speci men Quali ty: Adequ ate Resul t: Mixed genit al trista isola anastacia. These super ficia l bacte ju are not indic ative of a urina ry tract infec tion. No furth er organ ism ident ifica tion is warra nted on this speci men. If clini michelle indic ated, recol lect clean -catc h, mid-s tream urine and trans rayna immed iatel y to Urine Cultu re Trans port Tube. Not Available [facility] [address] [place], [address], 06/07/2024 22:46:29 Result Notes None recorded. Medical Equipment None Reported. Allergies No known drug allergies Medications Name Sig Start Date Stop Date Status Note LastModified by Organization Details LastModified Time sodium chloride 0.9 % irrigation solution USE hydrogen peroxide and sodium chloride FOR trach care daily NEEDED via irrigatio n active Not Available Not Available No t Available hydroxyzine HCl 25 mg tablet TAKE ONE TABLET BY MOUTH TWICE DAILY NEEDED & TAKE ONE TABLET DAILY AT NOON active Not Available Not Available No t Available ziprasidone 40 mg capsule Take 1 capsule twice a day by oral route. active Not Available Not Available No t Available polyethylen e glycol 3350 17 gram/dose oral powder Dissolve 1 capful in 8 ounces of liquid and drink ONCE daily active Not Available Not Available No t Available amoxicillin 875 mg-potassiu m clavulanate 125 mg tablet TAKE ONE TABLET BY MOUTH TWICE DAILY FOR 10 DAYS 06/05 completed Not Available Not Available Not Available levothyroxi ne active Not Available Not Available Not Available olanzapine active Not Available Not Av ailable Not Available benztropine active Not Available Not A vailable Not Available furosemide active Not Available Not Av ailable Not Available divalproex active Not Available Not Av ailable Not Available lisinopril active Not Available Not Av ailable Not Available potassium active Not Available Not Alma Delia ilable Not Available metformin active Not Available Not Alma Delia ilable Not Available menthol 0.44 %-zinc oxide 20.6 % topical ointment APPLY TO THE AFFECTED AREA(S) topically FOUR TIMES DAILY NEEDED FOR SKIN irritatio n 06/05 completed Not Available Not Available Not Available TRUEplus Lancets 30 gauge USE DIRECTED active Not Available Not Available No t Available True Metrix Glucose Test Strip USE DIRECTED active Not Available Not Available No t Available True Metrix Glucose Meter USE DIRECTED active Not Available Not Available No t Available Flonase Allergy Relief active Not Available Not Available Not Available Ozempic active Not Available Not Avail able Not Available Ozempic 1 mg/dose (4 mg/3 mL) subcutaneou s pen injector inject 1mg SUBCUTANE OUSLY ONCE WEEKLY ON active Not Available Not Available No t Available Vitals Date Recorded Body height Body mass index (BMI) Body weight Oxygen saturation Oxygen saturation in Arterial blood by Pulse oximetry Heart rate Respiratory rate Body temperature Systolic And Diastolic Provider Name and Address Organization Details Last Updated DateTime 175.26 cm 30 kg/m2 78985.2 5 g 96 % 96 % 79 /min 16 /min 98.2 [degF] 160/80 mm[Hg] Swapna Flynn [facility] 17:36:31 Social History None recorded. Functional Status None recorded. Mental Status None recorded. Family History Nothing Reported. Medical History No medical history recorded. Past Encounters Encounter ID Performer Location Encounter Start Date Encounter Closed Date Diagnosis/Indication Diagnosis SNOMED-CT Code Diagnosis ICD10 Code Diagnosis Note [id number] [facility]AN ROS[facility] ([facility]) [address] [place] [address] 06/05/2024 17:20:12 06/05/2024 17:55:54 Dysuria 04986955 R30.0 Chronic back pain 446835 002 G89.29 No signs of urinary tract infection. Pt is to keep appt with PCP tomorrow for further work up regarding chronic back pain. Health Concerns Section Related Observation LastModified by Organization Detai ls LastModified Time None Recorded Concern Status LastModified by Organization Details LastModified Time None Recorded Advance Directives Directive None Recorded Payers Insurance Date Sequence Insurance Name Policy Number Policy Berger Covered Member ID Berger Member ID Guarantor Name 06/06/2024 2 [place] Travon Valladares Michelle [id number] [facility] Michelle Benjamin 06/06/2024 1 [place] Travon Valladares Michelle [id number] [facility] Michelle Benjamin 06/06/2024 [place] A - 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 Patient said that he has had back pain for many years. no meds administered. no change to chronic back pain. pt has appt with PCP tomorrow. Pt's mother wanted to make sure the pain was not caused from a UTI. pt deneis any urinary symptoms. RAINER MOY, HOTBED TRANSFER OPERATOR[address], [address], [facility] 06/05/2024 17:52:54
--- OUTSIDE RECORDS SUMMARY | 2024-09-15 22:50 | XMS_ITS | Data Portability ---
Author Organization [place] - [facility] [place], ADMIN Address [address] [place] [address] Assessment Encounter Date Assessment Date Assessment LastModified by Organization Details LastModified Time 04/13/2022 04/13/2022 57 y/o male hx of trach- in 1998 for severe LEE , management of trach care, LEE 1. Trach care: Patient instructed to clean inner cannula of trach BID with brush and water. 2. Decannulation Plan: Patient is tolerating capping 24/7 with no problems Patient and caregiver advised to move cap if patient is unable to tolerate immediately. Rx 6CFS. Patient is continuing to keep trach capped 24/7 with no difficulties. NEVER THE LESS THE MOTHER IS CONCERNED ABOUT REMOVE THE TRACHEOSTOMY TUBE AND WILL NOT CONSENT TODAY. PER HER REQUEST WE will obtain a written physician report, from his facility, prior to considering decannulation. 4. Additionally, we will order a sleep study with the trach capped to assess the patient's obstructive sleep apnea. After that, we will see the patient in 6 months and discussed with the mother the possibility to decannulate or maintain the tracheostomy tube, according to the sleep study results. The mother is making decisions for Mr. Travon Michelle. RTC in 6 months I Cristian Tuttle, acting as a scribe for Long Escobar MD to document his verbalization of the History of Present Illness, Physical Exam, Assessment and Plan. Cristian Tuttle, Scribe, 04/13/2022 1:33 pm I Long Escobar MD, hereby attest I personally performed and dictated the services documented in the History of Present, Illness, Physical Exam, Assessment and Plan and agree the documentation accurately represents these services and the decisions I made. I also reviewed the documented Review of Systems and the Past, Family, and Social History made changes and/or additions as needed. Long Escobar MD, [email or web address] Not available 04/13/2022 14:37:21 03/11/2023 03/11/2023 58 y/o male hx of trach- in 1998 for severe LEE, management of trach care, LEE Exam: Granulations around the trach; 5mm granulation to the peristomal region 1. Trach care: Patient instructed to clean inner cannula of trach BID with brush and water. 2. Decannulation Plan: Patient is tolerating capping 24/7 with no problems Patient and caregiver advised to move cap if patient is unable to tolerate immediately. 4. Granulations of trach: Will cauterize the granulation tissue, today. Attention given to the peristomal granulation; it was cauterized with silver nitrate. Reduced the 5mm granulation with silver nitrate. Placed triamcinolone ointment to the peristomal granulation. Patient tolerated well. Rx Triamcinolone ointment to use a small amount with a q-tip TID to the peristomal granulation nodule. RTC in 2 weeks I Ирина Adair, acting as a scribe for Long Escobar MD to document his verbalization of the History of Present Illness, Physical Exam, Assessment and Plan. Ирина Adair, Francieibe, 03-11-23 15:18 I Long Escobar MD, hereby attest I personally performed and dictated the services documented in the History of Present, Illness, Physical Exam, Assessment and Plan and agree the documentation accurately represents these services and the decisions I made. I also reviewed the documented Review of Systems and the Past, Family, and Social History made changes and/or additions as needed. Long Escobar MD, [email or web address] Not available 03/11/2023 16:24:25 03/25/2023 03/25/2023 58 y/o male hx of trach- in 1998 for severe LEE, management of trach care, LEE Exam: Granulations around the trach; 2mm granulation to the peristomal region 1. Trach care: Patient instructed to clean inner cannula of trach BID with brush and water. 2. Decannulation Plan: Patient is tolerating capping 24/7 with no problems Patient and caregiver advised to move cap if patient is unable to tolerate immediately. 4. Granulations of trach: Patient presents with improvement to the granulations of his stoma. Rx Triamcinolone ointment TID for 2 more weeks. Will reassess in 2 more weeks. RTC in 2 weeks I Ирина Adair, acting as a scribe for Long Escobar MD to document his verbalization of the History of Present Illness, Physical Exam, Assessment and Plan. Padmini Alcaraz, 03-25-23 10:57am I Long Escobar MD, hereby attest I personally performed and dictated the services documented in the History of Present, Illness, Physical Exam, Assessment and Plan and agree the documentation accurately represents these services and the decisions I made. I also reviewed the documented Review of Systems and the Past, Family, and Social History made changes and/or additions as needed. Long Escobar MD, [email or web address] Not available 03/25/2023 11:57:12 04/08/2023 04/08/2023 58 y/o male hx of trach- in 1998 for severe LEE, management of trach care, LEE Exam: Granulation around the trach; 1mm granulation to the peristomal region 1. Trach care: Patient instructed to clean inner cannula of trach BID with brush and water. 2. Decannulation Plan: Patient is tolerating capping 24/7 with no problems Patient and caregiver advised to move cap if patient is unable to tolerate immediately. Rx 6CFS. 4. Granulation of trach: Patient presents with significant improvement to the granulation of his stoma. Attention given to the peristomal granulation; it was cauterized with silver nitrate. Reduced the 1mm granulation with silver nitrate. Placed triamcinolone ointment to the peristomal granulation. Patient tolerated well. RTC in 4 weeks for trach change I Ирина Adair, acting as a scribe for Long Escobar MD to document his verbalization of the History of Present Illness, Physical Exam, Assessment and Plan. Padmini Alcaraz, 04-08-23 12:41pm I Long Escobar MD, hereby attest I personally performed and dictated the services documented in the History of Present, Illness, Physical Exam, Assessment and Plan and agree the documentation accurately represents these services and the decisions I made. I also reviewed the documented Review of Systems and the Past, Family, and Social History made changes and/or additions as needed. Long Escobar MD, [email or web address] Not available 04/08/2023 13:46:13 05/10/2023 05/10/2023 58 y/o male hx of trach- in 1998 for severe LEE, management of trach care, LEE Exam: Granulation around the trach; 1mm granulation to the peristomal region, Change tracheostomy tube to 6 cm fast, patient tolerated and postprocedure bronchoscopy confirmed appropriate placement 1. Trach care: Patient instructed to clean inner cannula of trach BID with brush and water. 2. Decannulation Plan: Patient is tolerating capping / with no problems Patient and caregiver advised to move cap if patient is unable to tolerate immediately. 4. Granulation of trach: Patient presents with significant improvement to the granulation of his stoma. Attention given to the peristomal granulation; it was cauterized with silver nitrate, previously. 5. Attention to tracheostomy: Patient's trach was changed, today. Patient tolerated well. 6. I disclosed/discus sed with the patient that I will be leaving my position soon. I discussed that I could refer them to Dr. Samaniego in [place] for further management/inter vention. I Ирина Adair, acting as a scribe for Long Escobar MD to document his verbalization of the History of Present Illness, Physical Exam, Assessment and Plan. Ирина Adair, Scribe, 05-10-23 15:09 I Long Escobar MD, hereby attest I personally performed and dictated the services documented in the History of Present, Illness, Physical Exam, Assessment and Plan and agree the documentation accurately represents these services and the decisions I made. I also reviewed the documented Review of Systems and the Past, Family, and Social History made changes and/or additions as needed. Long Escobar MD, [email or web address] Not available 05/10/2023 16:31:08 Plan of Treatment Reminders Order Date Submit Date Provider Last Modified By Organization Details Last Modified Time Details Appointments None recorded . Lab None recorded . Referral otolaryn gologist referral - Trach was changed 05/10/232023 024 [facility], [address], [place], [place], [address], 4 15:41:56 Procedures None recorded . Surgeries None recorded . Imaging None recorded . Medication Orders triamcin olone acetonid e 0.1 % topical ointment [address] [facility], [address] [place], [address], 4 09:20:56 triamcin olone acetonid e 0.1 % topical ointment [address] [facility], [address] [place], [address], 4 11:35:45 Patient TargetsNo targets recorded. Patient Instructions Encounter Date Encounter Id Patient Instructions Last Modified By Organization Details Last Modified Time 03/11/2023 [id number] 1. I have reviewed the patient's new referral from their PCP regarding a growth of his trach. 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 Procedures Surgical History Date Name Laterality Status Provider Name and Address Organization Details Recorded Time 2023 Tracheobroncoscopy - Dr. Vinnie ESCOBAR MD [address] [facility], [place], [address], [place] - [address] 4 16:30:32 2023 Blank Procedure Template completed Yasir Adair [place] - [facility] [place] 4 16:24:38 2022 Tracheobroncoscopy - Dr. [place] completed Cristian Tuttle [place] [facility] [place] 3 14:34:15 2021 Tracheobroncoscopy - Dr. [place] completed Cristian Tuttle [place] [facility] [place] 2 15:45:00 2021 Tracheobroncoscopy - Dr. [place] completed Cristian Tuttle [place] [facility] [place] 2 14:31:11 2021 Tracheobroncoscopy - Dr. [place] completed Cristian Tuttle [place] [facility] [place] 2 15:50:11 2021 Flexible Fiberoptic Nasopharyngolaryngoscopy completed FosterKayley Tuttle [place] [facility] [place] 2 14:30:23 2021 Tracheobroncoscopy - Dr. [place] completed Cristian Tuttle [place] [facility] [place] 2 14:30:18 Cholecystectomy completed Neyda Cruz lpn [place] [facility] [place] 8 12:05:23 Other completed Neyda Cruz lpn [place] [facility] [place] 8 12:05:43 Imaging Results None recorded. Procedure Notes None recorded. Medical Equipment None Reported. Allergies Allergen ID Allergen Name Allergen Category Reaction Reaction Severity Criticality Documentation Date Start Date Code Code System Note Provider Name and Address Organization Details Recorded Time 96655 cefaclor medicatio n Not available Not available Not available 10/27/2017 2176 RxNorm Rebel Thompson LPN null, [place] - [facility] [place] 8 14:57:16 78077 Tegretol medicatio n Not available Not available Not available 10/27/201720292 9 RxNorm Rebel Thompson LPN [place], [place] [facility] [place] 8 14:57:24 09994 metronida zole medicatio n Not available Not available Not available 10/27/2017 6922 RxNorm Rebel Thompson [employer] null, [place] - [facility] [place] 8 14:57:47 Medications Name Sig Start Date Stop Date Status Note LastModified by Organization Details LastModified Time contour strips USE TO CHECK BLOOD SUGAR DAILY active Not Available Not Available No t Available ziprasidone 80 mg capsule active Not Available Not Available Not Available metformin 500 mg tablet TAKE 2 TABLETS BY MOUTH EVERY MORNING, THEN TAKE 1 TABLET BY MOUTH AT BEDTIME active Not Available Not Available No t Available azithromyci n 250 mg tablet TAKE 2 TABLETS BY MOUTH ON DAY 1, THEN TAKE 1 TABLET DAILY ON DAYS 2-5 active Not Available Not Available No t Available divalproex 500 mg tablet,ryile yed release Take 1 tablet 3 times a day by oral route. active Not Available Not Available No t Available olanzapine 2.5 mg tablet Take 1 tablet every day by oral route. active Not Available Not Available No t Available olanzapine 7.5 mg tablet active Not Available Not Available Not Available acetaminoph en 650 mg tablet Take 1 tablet every 6 hours by oral route as needed. active Not Available Not Available No t Available levothyroxi ne 88 mcg tablet Take 1 tablet every day by oral route. active Not Available Not Available No t Available metformin 1,000 mg tablet TAKE 1 TABLET BY MOUTH TWICE DAILY active Not Available Not Available No t Available triamcinolo ne acetonide 0.1 % topical ointment apply very small amount to area of granulati on tissue at trach site tid for 2 weeks 2023 active Not Available Not Available Not Avai lable lisinopril 10 mg tablet active Not Available Not Available Not Available divalproex ER 500 mg tablet,exte nded release 24 hr TAKE 1 TABLET BY MOUTH TWICE DAILY active Not Available Not Available No t Available benztropine 1 mg tablet TAKE 1 TABLET BY MOUTH TWICE DAILY FOR EPS active Not Available Not Available No t Available docusate sodium 100 mg capsule TAKE 1 CAPSULE BY MOUTH TWICE DAILY FOR CONSTIPAT ION active Not Available Not Available No t Available mupirocin 2 % topical ointment active Not Available Not Available Not Available ziprasidone 40 mg capsule Take 1 capsule every day by oral route. active Not Available Not Available No t Available polyethylen e glycol 3350 17 gram/dose oral powder MIX 17GMS OF POWDER WITH EIGHT OUNCE OF WATER AND TAKE BY MOUTH DAILY active Not Available Not Available No t Available fluticasone propionate 50 mcg/actuati on nasal spray,suspe nsion INSTILL 1 SPRAY IN EACH NOSTRIL DAILY FOR ALLERGIC RHINITIS/ CONGESTIO N active Not Available Not Available No t Available Depakene 250 mg capsule Take 1 capsule every day by oral route at noon. 04/13 completed Not Available Not Available Not Available amoxicillin 875 mg-potassiu m clavulanate 125 mg tablet TAKE 1 TABLET BY MOUTH TWICE DAILY FOR SEVEN DAYS 04/08 completed Not Available Not Available Not Available divalproex ER 250 mg tablet,exte nded release 24 hr active Not Available Not Available Not Available fluticasone propionate active Not Available Not Available N ot Available multivitami n Once daily at noon active Not Available Not Available No t Available Vitamin B12 1000 mg Daily active Not Available Not Available No t Available Calcium 600 + D(3) active Not Available Not Available Not Available calcium 600 mg (as carbonate)- vitamin D3 10 mcg (400 unit) tablet TAKE 1 TABLET BY MOUTH TWICE DAILY FOR OSTEOPENI A active Not Available Not Available No t Available Calmoseptin e 0.44 %-20.6 % topical ointment APPLY TO IRRITATED STOMA SITE NEEDED active Not Available Not Available No t Available BD Ultra-Fine Viv Pen Needle 32 gauge x USE DIRECTED WITH VICTOZA active Not Available Not Available No t Available Contour Next Test Strips USE TO CHECK BLOOD SUGAR DAILY active Not Available Not Available No t Available Victoza 2-Chilo 0.6 mg/0.1 mL (18 mg/3 mL) subcutaneou s pen injector INJECT 1.2 MG SUBCUTANE OUSLY EVERY DAY active Not Available Not Available No t Available Contour Next Meter USE TO CHECK BLOOD SUGAR DAILY active Not Available Not Available No t Available Vitals Date Recorded Body height Body mass index (BMI) Body weight Heart rate Systolic And Diastolic Provider Name and Address Organization Details Last Updated DateTime 03/11/2023 175.26 cm 31.7 kg/m2 89314.2 g 71 /min 169/83 mm[Hg] Trena Tellez LPN [place] - [facility] [place] 01/12/202 4 15:05:05 Date Recorded Body height Body mass index (BMI) Body weight Heart rate Systolic And Diastolic Provider Name and Address Organization Details Last Updated DateTime 03/25/2023 175.26 cm 30.9 kg/m2 29800.81 g 69 /min 146/77 mm[Hg] Trena Tellez LPN [address] 4 11:07:26 Date Recorded Body height Heart rate Systolic And Diastolic Provider Name and Address Organization Details Last Updated DateTime 04/08/2023 175.26 cm 67 /min 125/68 mm[Hg] Trena Tellez LPN [address] 04/08/2023 13:06:30 Date Recorded Body height Heart rate Body mass index (BMI) Body weight Systolic And Diastolic Provider Name and Address Organization Details Last Updated DateTime 04/13/2022 175.26 cm 73 /min 31.2 kg/m2 46342.43 g 132/76 mm[Hg] Stephanie Tee LPN [address] 04/13/2022 14:23:25 Date Recorded Body height Heart rate Systolic And Diastolic Provider Name and Address Organization Details Last Updated DateTime 05/10/2023 175.26 cm 78 /min 169/97 mm[Hg] Elise Vizcarraowan [address] 05/10/2023 14:58:55 Social History Question Answer Notes LastModified by Organization D etails LastModified Time How Many Years Have You Smoked Tobacco? 30 Chews [email or web address] Information not available 10/28/2017 Sex: Unknown Functional Status Question Answer Note LastModified by Organization D etails LastModified Time What is your occupation? Other [facility] [id number] Information not available 08/27/2024 Mental Status None recorded. Family History Nothing Reported. Medical History Condition Response THYROID DISEASE Y SEIZURES Y HAVE YOU BEEN HOSPITALIZED OR SEEN IN [facility] IN THE PAST YEAR ? Y Past Encounters Encounter ID Performer Location Encounter Start Date Encounter Closed Date Diagnosis/Indication Diagnosis SNOMED-CT Code Diagnosis ICD10 Code Diagnosis Note [id number] RED MASON MD [facility] [address] [facility] [place] [address] 10/28/2017 11:41:41 11/01/2017 15:05:55 Cholelithiasis without obstruction 21112983 K80.80 [id number] LONG ESCOBAR MD [facility] [address] [place] [address] 09/22/2021 13:58:38 09/22/2021 17:21:23 Attention to tracheostomy 911302681 Z43.0 Obstructiv e sleep apnea syndrome 58100295 G47.33 [id number] LONG ESCOBAR MD [facility] [address] [place] [address] 11/19/2021 14:39:45 11/23/2021 13:06:50 Attention to tracheostomy 527007968 Z43.0 Obstructiv e sleep apnea syndrome 24584749 G47.33 [id number] LONG ESCOBAR MD [facility] [address] [place] [address] 12/03/2021 13:56:45 12/03/2021 14:31:00 Attention to tracheostomy 190229851 Z43.0 Obstructiv e sleep apnea syndrome 56068658 G47.33 [id number] LONG ESCOBAR MD [facility] [address] [place] [address] 12/11/2021 14:26:59 12/11/2021 15:34:37 Attention to tracheostomy 730954345 Z43.0 Obstructiv e sleep apnea syndrome 34735007 G47.33 [id number] LONG ESCOBAR MD [facility] [address] [place] [address] 12/18/2021 14:14:31 12/18/2021 15:39:09 Attention to tracheostomy 793610730 Z43.0 Obstructiv e sleep apnea syndrome 18456025 G47.33 [id number] LONG ESCOBAR MD [facility] [address] [place] [address] 04/13/2022 13:49:47 04/13/2022 14:39:58 Attention to tracheostomy 383288516 Z43.0 Obstructiv e sleep apnea syndrome 19800455 G47.33 [id number] LONG ESCOBAR MD [facility] [address] [place] [address] 03/11/2023 14:43:53 03/11/2023 16:53:55 Attention to tracheostomy 283436017 Z43.0 Obstructiv e sleep apnea syndrome 58617131 G47.33 Peristomal skin complication 756006490 L76.82 [id number] LONG ESCOBAR MD [facility] [address] [place] [address] 03/25/2023 10:51:37 03/25/2023 12:01:28 Attention to tracheostomy 000851052 Z43.0 Obstructiv e sleep apnea syndrome 07749200 G47.33 Peristomal skin complication 947708503 L76.82 [id number] LONG ESCOBAR MD [facility] [address] [place] [address] 04/08/2023 12:59:36 04/08/2023 13:48:26 Attention to tracheostomy 478688422 Z43.0 Obstructiv e sleep apnea syndrome 79179288 G47.33 Peristomal skin complication 416617269 L76.82 [id number] LONG ESCOBAR MD [facility] [address] [place] [address] 05/10/2023 14:24:50 05/10/2023 16:58:53 Attention to tracheostomy 893549383 Z43.0 Obstructiv e sleep apnea syndrome 58119949 G47.33 Peristomal skin complication 137530973 L76.82 Health Concerns Section Related Observation LastModified by Organization Detai ls LastModified Time None Recorded Concern Status LastModified by Organization Details LastModified Time None Recorded Advance Directives Directive None Recorded Payers Insurance Date Sequence Insurance Name Policy Number Policy Berger Covered Member ID Berger Member ID Guarantor Name 08/27/2024 1 [place] Travon Valladares Michelle [id number] Travon Valladares Michelle 08/27/2024 2 [place] Travon Valladares Michelle [id number] Travon Valladares Michelle Notes Date Note Type Note Provider Name and Address Organization Details Recorded Time 04/13/2022 text/html 56 y/o male isaías ent arrives today accompanied by his caregiver and mother. Caregiver reports patient has been tolerating trach capping with no problems. Caregiver reports patient is doing well. Interval Changes:57 y/o male patient arrives today and complains of intermittent mild longstanding bilateral ear fullness. LONG ESCOBAR MD [address] [place], [place] [address], [address], [facility] [place] 04/13/2022 15:04:48 03/11/2023 text/html 57 y/o male isaías ent arrives today and complains of intermittent mild longstanding bilateral ear fullness. Interval Changes:58 y/o male patient arrives today, with a new referral from his PCP, regarding his s/p tracheostomy and states he has developed a growth in his trach and states it is associated with moderate to severe pain. LONG ESCOBAR MD [address] [place] [address] [place], [address], [facility] - [facility] [place] 03/11/2023 16:34:59 03/25/2023 text/html 58 y/o male isaías ent arrives today, with a new referral from his PCP, regarding his s/p tracheostomy and states he has developed a growth in his trach and states it is associated with moderate to severe pain. Interval Changes:58 y/o male patient arrives today feeling poor overall. He presents for evaluation of the granulations that were around his trach at previous visit, which has significantly improved. LONG ESCOBAR MD [address] [place] [address], [phone], [facility] - [facility] [place] 03/25/2023 12:36:20 04/08/2023 text/html 58 y/o male isaías ent arrives today feeling poor overall. He presents for evaluation of the granulations that were around his trach at previous visit, which has significantly improved. Interval Changes:58 y/o male patient arrives today reporting some improvement to his overall well-being since previous visit. Patient presents with near resolution of the granulations to his trach. LONG ESCOBAR MD [address] [place] [address], [phone], [facility] - [facility] [place] 04/12/2023 10:16:09 05/10/2023 text/html 58 y/o male isaías ent arrives today reporting some improvement to his overall well-being since previous visit. Patient presents with near resolution of the granulations to his trach. Interval Changes:58 y/o male patient arrives today for a trach change. LONG ESCOBAR MD [address] [place], [place] [address], [address], [place] [facility] [place] 05/10/2023 16:32:26
[2024-09-15 22:51] VITALS: BP 206/96; PULSE 63; RESP 18; TEMP 36.9; O2SAT 95; BMI 31.3
--- NOTE | 2024-09-15 22:52 | ECG_ITS ---
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 Measurements Intervals Bee Rate: 57 P: 35 DE: 155 QRS: -26 QRSD: 102 T: 37 QT: 417 QTc: 409 Interpretive Statements SINUS BRADYCARDIA BORDERLINE LEFT AXIS DEVIATION [QRS AXIS < -20] Compared to ECG 07/09/2024 16:26:57 Myocardial infarct finding no longer present Electronically Signed On 09-16-2024 18:35:44 CDT by Will Teran M.D. [id number]
[2024-09-15 23:15] VITALS: BP 157/87; PULSE 61; RESP 20; O2SAT 93
[2024-09-15 23:41] LABS: Troponin(5th) Baseline 13 ng/L (0-15)
[2024-09-15 23:44] LABS: Hematocrit 36.7 % (37-53); Hemoglobin 13.00 g/dL (11.27-16.99); Mean Corpuscular HGB Conc 35.4 g/dL (30-55); Mean Corpuscular Hemoglobin 33.3 pg (27-33); Mean Corpuscular Volume 94.1 fl (82-101); Nucleated Red Blood Cells % 0 %; Platelet Count 154 10^3/cmm (157-399); Red Blood Count 3.90 10^6/uL (3.85-5.65); White Blood Count 4.25 10^3/uL (3.29-11.43)
[2024-09-15 23:46] LABS: Alanine Aminotransferase 11 U/L (0-41); Albumin Level 3.8 g/dL (3.5-5.2); Alkaline Phosphatase 47 U/L (40-130); Anion Gap 14.6 (5-19); Aspartate Amino Transferase 12 U/L (0-40); Blood Urea Nitrogen 14 mg/dL (8-23); Calcium 9.1 mg/dL (8.5-10.5); Carbon Dioxide 22 mmol/L (22-29); Chloride 96 mmol/L (98-107); Creatinine Clr Calc Pharmacy 126.7837; Globulin 1.9 g/dL (1.3-4.6); Glucose 249 mg/dL (65-115); Osmolality Calculated 275 mOsm/kg (285-295); Potassium 4.6 mmol/L (3.5-5.1); Sodium 128 mmol/L (136-145); Total Protein 5.7 g/dL (6.6-8.7)
--- NOTE | 2024-09-15 23:59 | XRR_ITS ---
PROCEDURE INFORMATION: Exam: XR Chest Exam date and time: 09/16/2024 12:14 AM Age: 59 years old Clinical indication: Chest pressure; Prior surgery; Surgery date: 6+ months; Surgery type: Tracheostomy; C/O chest pain with mucus plugging of trach. ; Additional info: Hxof pna TECHNIQUE: Imaging protocol: Radiologic exam of the chest. Views: 1 view. COMPARISON: CR XR chest 2V* [id number] 09/04/2024 10:25 AM FINDINGS: A tracheostomy tube is present. Lungs: The right side of the diaphragm is somewhat elevated. Limited lung volumes. No consolidation. Pleural spaces: Unremarkable. No pleural effusion. No pneumothorax. Heart/Mediastinum: Unremarkable. No cardiomegaly. Bones/joints: Unremarkable. XR/XR chest 1V portable [id number] IMPRESSION: No acute findings. Limited lung volumes.
--- NOTE | 2024-09-15 23:59 | W.ED.CHESTPA ---
HPI - Chest Pain General: Chief Complaint: Chest Pain Stated Complaint: cp Time Seen by Provider: 09/15/24 23:00 Source: patient and family Mode of arrival: EMS Limitations: no limitations History of Present Illness: Patient is a 59-year-old male who is brought in by EMS for chest congestion. Primary caregiver is in the room, he states that earlier today he was outside in the heat, had an episode of what appeared to be regurgitation of a hot dog, but believes that he was able to clear this up normally. 2 separate episodes after this, and he had spit up tobacco juice from a tobacco packet and that he has never done this before. He does note that he has a history of tracheal congestion and chronically is coughing up mucus. He had his trach changed this morning, mother is in the room and states that she feels it is not long enough. He has had the trach since 1998. Patient has no complaints at this time, mom also states she would just like him evaluated. Patient lives at [facility]. He is hypertensive at this time. Mom states that patient was recently seen at [place] emergency department and diagnosed with pneumonia. MD complaint: other (Chest/trach congestion) Associated symptoms: Deny abdominal pain, dyspnea, fever(s), nausea, palpitations or vomiting Related Data Home Medications ?Medication ?Instructions ?Recorded ?Confirmed hydroxyzine HCl 25 mg tablet 25 mg PO BID PRN ANXIETY 07/09/24 09/04/24 Previous Rx's ?Medication ?Instructions ?Recorded acetaminophen 325 mg capsule 650 mg (2 x 325 mg) PO Q4H PRN as 03/21/24 needed for pain or elevated temperature #60 caps benztropine 1 mg tablet 1 mg PO BID #60 tabs 03/21/24 ziprasidone HCl 40 mg capsule 40 mg PO ONCE #30 caps 03/21/24 ziprasidone HCl 80 mg capsule 80 mg PO ONCE #30 caps 03/21/24 blood-glucose meter (True Metrix #1 ea 04/06/24 Glucose Meter) ondansetron 4 mg disintegrating 4 mg PO Q8H PRN nausea and 08/23/24 tablet vomiting #30 tabs blood sugar diagnostic (True #300 ea 09/04/24 Metrix Glucose Test Strip) calcium 600 mg (as 1 tab PO BID #180 tabs 09/04/24 carbonate)-vitamin D3 10 mcg (400 unit) tablet (Calcium with Vitamin D) divalproex 500 mg tablet,extended 500 mg PO BID #60 tabs 09/04/24 release 24 hr docusate sodium 100 mg capsule 100 mg PO DAILY #90 caps 09/04/24 fluticasone propionate 50 2 spray intranasal DAILY #16 grams 09/04/24 mcg/actuation nasal spray,suspension (Allergy Relief (fluticasone)) furosemide 20 mg tablet (Lasix) 20 mg PO QAM #90 tabs 09/04/24 hydrogen peroxide 3 % solution 1 applic topical DAILY PRN trach 09/04/24 care #473 mL lancets 31 gauge (Ultra Thin #300 ea 09/04/24 Lancets) levothyroxine 88 mcg capsule 88 mcg PO DAILY #90 caps 09/04/24 menthol 0.44 %-zinc oxide 20.6 % 1 applic topical QID PRN skin 09/04/24 topical ointment (Calmoseptine) irritation #113 grams olanzapine 7.5 mg tablet 7.5 mg PO DAILY #90 tabs 09/04/24 polyethylene glycol 3350 17 17 g PO DAILY PRN constipation 09/04/24 gram/dose oral powder (Miralax) #510 grams potassium chloride 10 mEq 10 meq PO DAILY #90 tabs 09/04/24 tablet,extended release sodium chloride 0.9 % irrigation 1 irrig irrigation DAILY PRN trach 09/04/24 solution care #12,000 mL rollator 4 wheels with seat #1 ea 09/06/24 lisinopril 10 mg tablet 10 mg PO QAM #90 tabs 09/07/24 metformin 1,000 mg tablet 1,000 mg PO BID #180 tabs 09/07/24 manual wheelchair #1 ea 09/13/24 Allergies Allergy/AdvReac Type Severity Reaction Status Date / Time metronidazole (From Flagyl) Allergy Unknown Verified 09/04/24 09:20 carbamzepine Allergy Unknown Uncoded 09/04/24 09:20 ceclor Allergy Unknown Uncoded 09/04/24 09:20 Review of Systems General: Reports: 10 or more systems reviewed and unremarkable except in HPI and below Const: Denies: fever(s), chills or fatigue Eyes: Denies: change in vision ENMT: Denies: throat pain, ear or mastoid pain or nasal discharge Card: Reports: other (Chest congestion); Denies: chest pain, palpitations, swelling of feet/ankles or lightheadedness Resp: Denies: dyspnea, productive cough or wheezing GI: Denies: abdominal pain, nausea, vomiting, diarrhea or constipation : Denies: flank pain, difficulty urinating, dysuria or urinary frequency Musc: Denies: neck pain, back pain or joint pain Skin/Breast: Denies: rash Neuro: Denies: headache(s), numbness in extremities or weakness in extremities PFSH ED PFSH: Medical History Type 2 diabetes mellitus Hypertension Hx of sleep apnea Tracheostomy tube present Bipolar affective disorder Disruptive behavior disorder Chronic allergic rhinitis Social History Smoking and tobacco/nicotine status: current every day tobacco/nicotine user (chew pouches) Physical Exam Const: COMMON NORMALS: no acute distress and patient oriented x3 EXAM LIMITATIONS: physical limitations GENERAL APPEARANCE: cooperative, comfortable and well developed ORIENTATION/CONSCIOUSNESS: Yes awake, Yes oriented to person, Yes oriented to place and Yes oriented to time HENMT: COMMON NORMALS: normocephalic, atraumatic and hearing grossly normal bilaterally HEAD & SCALP: normocephalic and atraumatic OTHER: Trach present Eye: COMMON NORMALS: Equal, round and reactive pupils present, EOMs intact bilaterally and conjunctivae normal CONJUNCTIVA: Yes conjunctivae normal PUPIL: Yes Equal, round and reactive pupils present Neck/C-Spine: COMMON NORMALS: full ROM, supple and no JVD Chest: OTHER: Postoperative changes to breasts Resp: COMMON NORMALS: normal respiratory effort, No retractions, No use of accessory muscles and clear to auscultation bilaterally AUSCULTATION: clear to auscultation bilaterally Cardio: COMMON NORMALS: no JVD, regular rate, regular rhythm, No clicks present (Cardio), No murmurs present (Cardio) and No rub (Cardio) RATE: regular rate RHYTHM: regular rhythm GI: COMMON NORMALS: Normal to inspection, nondistended, normoactive bowel sounds present, Soft to palpation and non-tender AUSCULTATION: Yes normoactive bowel sounds PALPATION: Yes Soft to palpation RECTAL EXAM: Yes deferred Back/Pelvis: COMMON NORMALS: thoracic and lumbar spine normal to inspection, no thoracic nor lumbar tenderness and thoraco-lumbar ROM normal Extremity: COMMON NORMALS: normal to inspection, full ROM and capillary refill normal Neuro: COMMON NORMALS: patient oriented x3, moves all extremities, no focal motor deficits and no sensory deficits noted SENSORIUM/ORIENTATION: Yes oriented to person, Yes oriented to place and Yes oriented to time Psych: COMMON NORMALS: mental status grossly normal and Normal thought process present THOUGHT PROCESS: Normal thought process present Skin: COMMON NORMALS: no rashes or lesions noted GENERAL SKIN EXAM: no rashes or lesions noted Course Vital Signs: Vital signs: Vital Signs Temperature 98.4 F 09/15/24 22:51 Pulse Rate 63 09/15/24 22:51 Respiratory Rate 18 09/15/24 22:51 Blood Pressure 206/96 09/15/24 22:51 Pulse Oximetry 95 09/15/24 22:51 MDM - Chest Pain Medical Decision Making Patient presented with the [facility] staff and family, they had concerns of patient being dehydrated as he was outside today and this is not usual for him. He had not taken his home medications yet, which included his antitensive medications and psychiatric medications as he is autistic. Hypertensive here,. Discharge was 180/80. He had noted initially with EMS that there was some chest pain/congestion, his EKG obtained reviewed physician showing no acute STEMI or other ischemic process. His initial troponin was negative, chest x-ray did not show any acute cardiopulmonary process, though family did note he recently was diagnosed with pneumonia. He has not had any fever or other signs of systemic illness, and patient had no complaints today. Rest of his labs are unremarkable, he was given a liter of fluids and I do suspect potential dehydration due to the history. Family and staff are comfortable taking the patient home to take his night medications, and general return precautions given. Lab Data 09/15/24 23:11 09/15/24 23:11 Laboratory Results WBC 4.25 10^3/uL (3.29-11.43) 09/15/24 23:11 RBC 3.90 10^6/uL (3.85-5.65) 09/15/24 23:11 Hgb 13.00 g/dL (11.27-16.99) 09/15/24 23:11 Hct 36.7 % (37-53) L 09/15/24 23:11 MCV 94.1 fl (82-101) 09/15/24 23:11 MCH 33.3 pg (27-33) H 09/15/24 23:11 MCHC 35.4 g/dL (30-55) 09/15/24 23:11 RDW 12.7 % (12.1-15.1) 09/15/24 23:11 Plt Count 154 10^3/cmm (157-399) L 09/15/24 23:11 MPV 9.4 fL (7.4-10.4) 09/15/24 23:11 Neut % (Auto) 66.2 % 09/15/24 23:11 Lymph % (Auto) 19.3 % 09/15/24 23:11 Iroquois % (Auto) 12.9 % 09/15/24 23:11 Eos % (Auto) 0.9 % 09/15/24 23:11 Baso % (Auto) 0.2 % 09/15/24 23:11 Neut # (Auto) 2.81 10^3/uL (1.8-7.7) 09/15/24 23:11 Lymph # (Auto) 0.8 10^3/uL (0.8-4.8) 09/15/24 23:11 Iroquois # (Auto) 0.6 10^3/uL (0.2-0.9) 09/15/24 23:11 Eos # (Auto) 0.0 10^3/uL (0.0-0.8) 09/15/24 23:11 Baso # (Auto) 0.0 10^3/uL (0.0-0.1) 09/15/24 23:11 Nucleated RBC % (auto) 0 % 09/15/24 23:11 Nucleated RBCs # 0.0 /100WBC 09/15/24 23:11 Sodium 128 mmol/L (136-145) L 09/15/24 23:11 Potassium 4.6 mmol/L (3.5-5.1) 09/15/24 23:11 Chloride 96 mmol/L (98-107) L 09/15/24 23:11 Carbon Dioxide 22 mmol/L (22-29) 09/15/24 23:11 Anion Gap 14.6 (5-19) 09/15/24 23:11 BUN 14 mg/dL (8-23) 09/15/24 23:11 Creatinine 0.7 mg/dL (0.7-1.2) 09/15/24 23:11 GFR Calculation 114.6 mL/min (90-130) 09/15/24 23:11 Glucose 249 mg/dL (65-115) H 09/15/24 23:11 Calculated Osmolality 275 mOsm/kg (285-295) L 09/15/24 23:11 Calcium 9.1 mg/dL (8.5-10.5) 09/15/24 23:11 Total Bilirubin 0.3 mg/dL (0.15-1.2) 09/15/24 23:11 AST 12 U/L (0-40) 09/15/24 23:11 ALT 11 U/L (0-41) 09/15/24 23:11 Alkaline Phosphatase 47 U/L (40-130) 09/15/24 23:11 Troponin T Baseline 13 ng/L (0-15) 09/15/24 23:11 Total Protein 5.7 g/dL (6.6-8.7) L 09/15/24 23:11 Albumin 3.8 g/dL (3.5-5.2) 09/15/24 23:11 Globulin 1.9 g/dL (1.3-4.6) 09/15/24 23:11 XR interpretation done by ED provider, pending radiology final review ED provider radiology interpretation(s): Chest x-ray: No evidence of acute cardiopulmonary process. Trach present. Discharge Plan Discharge Patient Disposition: Home Clinical Impression: Dehydration Condition: Stable Prescriptions: No Action sodium chloride 0.9 % solution 1 irrig irrigation DAILY PRN (Reason: trach care) Qty: 78126 5RF Rx Instructions: Use hydrogen peroxide & sodium cl for trach care as needed potassium chloride 10 mEq tablet extended release 10 meq PO DAILY Qty: 90 1RF Rx Instructions: 1 tablet by mouth every am for potassium supplement olanzapine 7.5 mg tablet 7.5 mg PO DAILY Qty: 90 1RF Rx Instructions: Take 1 tablet by mouth at bedtime menthol-zinc oxide [Calmoseptine] 0.44-20.6 % ointment 1 applic topical QID PRN (Reason: skin irritation) Qty: 113 5RF levothyroxine 88 mcg capsule 88 mcg PO DAILY Qty: 90 1RF Rx Instructions: take 1 tablet by mouth every day for hypothyroidism furosemide [Lasix] 20 mg tablet 20 mg PO QAM Qty: 90 1RF Rx Instructions: 1 tablet every am for edema fluticasone propionate [Allergy Relief (fluticasone)] 50 mcg/actuation spray,suspension 2 spray intranasal DAILY Qty: 16 5RF Rx Instructions: administer into each nostril docusate sodium 100 mg capsule 100 mg PO DAILY Qty: 90 1RF Rx Instructions: Take 1 capsule by mouth every evening divalproex 500 mg tablet extended release 24 hr 500 mg PO BID Qty: 60 0RF Rx Instructions: Take 1 tablet by mouth 2 times a day for bipolar affective disorder calcium carbonate-vitamin D3 [Calcium with Vitamin D] 600 mg-10 mcg (400 unit) tablet 1 tab PO BID Qty: 180 1RF (DME) Ultra Thin Lancets 31 gauge misc See Rx Instructions .Route Qty: 300 3RF Rx Instructions: As directed (DME) True Metrix Glucose Test Strip Strip See Rx Instructions .Route Qty: 300 3RF Rx Instructions: As directed hydrogen peroxide 3 % solution 1 applic topical DAILY PRN (Reason: trach care) Qty: 473 5RF Rx Instructions: Use with sodium chloride for trach care a needed. polyethylene glycol 3350 [Miralax] 17 gram/dose powder 17 g PO DAILY PRN (Reason: constipation) Qty: 510 5RF (DME) rollator 4 wheels with seat See Rx Instructions .Route .MEDSUPPLY Qty: 1 0RF Rx Instructions: As directed (DME) manual wheelchair See Rx Instructions .Route .MEDSUPPLY Qty: 1 0RF Rx Instructions: As directed ondansetron 4 mg tablet,disintegrating 4 mg PO Q8H PRN (Reason: nausea and vomiting) Qty: 30 2RF benztropine 1 mg tablet 1 mg PO BID Qty: 60 0RF Rx Instructions: Take 1 tablet by mouth 2 times a day for EPS ziprasidone HCl 80 mg capsule 80 mg PO ONCE Qty: 30 0RF Rx Instructions: give with food (meal/snack) at bedtime ziprasidone HCl 40 mg capsule 40 mg PO ONCE Qty: 30 0RF Rx Instructions: give with food (meal/snack)in am acetaminophen 325 mg capsule 650 mg PO Q4H PRN (Reason: as needed for pain or elevated temperature) Qty: 60 5RF (DME) blood-glucose meter [True Metrix Glucose Meter] Misc See Rx Instructions .Route Qty: 1 0RF Rx Instructions: As directed lisinopril 10 mg tablet 10 mg PO QAM Qty: 90 0RF Rx Instructions: take one tab by mouth in am metformin 1,000 mg tablet 1,000 mg PO BID Qty: 180 1RF hydroxyzine HCl 25 mg tablet 25 mg PO BID PRN (Reason: ANXIETY ) Discharge Orders: Discharge ED (Routine); Ordered 09/16/24 Ordered By: Alton Juarez Referrals: Florinda Rios FNP-C [Primary Care Provider, Family Practice] Patient Instructions: Pain Management, Patient Portal & Trevon Instructions Activity Restrictions/Additional Instructions: Heat Illness & Tracheostomy Discharge Discharge Instructions: Dehydration After Heat Exposure with Tracheostomy Diagnosis and ED Course: Patient was evaluated for dehydration following heat exposure. Received intravenous isotonic fluids in the emergency department. Cardiac enzymes, ECG, and chest X-ray were unremarkable. History notable for tracheostomy. Patient was hypertensive in the ED and had missed scheduled antihypertensive medications. --- 1. Heat Illness and Dehydration Management - Hydration: - Encourage ongoing oral hydration with isotonic fluids (e.g., oral rehydration solutions, sports drinks, or water with salty snacks) to maintain euhydration and prevent recurrence of heat illness. - Advise against overhydration, especially in patients with cardiac comorbidities, to avoid risk of pulmonary edema. - Activity and Environment: - Avoid strenuous activity and heat exposure for at least several days. Gradual return to activity is recommended after full recovery. - Remain in a cool, shaded, or air-conditioned environment as much as possible. - Diet: - Resume normal diet as tolerated. Include salty foods if not contraindicated, to replenish sodium losses. - Warning Signs: - Instruct to seek immediate care for: confusion, persistent vomiting, chest pain, shortness of breath, syncope, muscle cramps unrelieved by rest and fluids, or any new neurologic symptoms. --- 2. Tracheostomy Care - Routine Care: - Clean the inner cannula at least twice daily using a clean (not sterile) technique. - Suction the tracheostomy as needed for visible or audible secretions, suspected airway obstruction, or increased work of breathing. Frequency may be individualized, but at minimum, suctioning should be performed when secretions are present. - Use humidification (e.g., humidified air or saline nebulizers) if the patient has thick secretions or a history of mucus plugging. - Maintain secure tracheostomy ties to prevent accidental decannulation. Confirm tube security before repositioning or turning in bed. - Keep emergency tracheostomy supplies (spare tube, obturator, suction equipment) at bedside at all times. - Stoma Care: - Inspect the stoma daily for signs of infection (erythema, swelling, purulent discharge) and clean with mild soap and water as needed. - Signs of Complications: - Educate on signs of tracheostomy obstruction (sudden respiratory distress, inability to pass suction catheter, gurgling sounds), infection (fever, increased redness or discharge), or accidental decannulation. Advise immediate medical attention if these occur. - Follow-up: - Arrange for outpatient follow-up with otolaryngology or tracheostomy care team as appropriate. --- 3. Antihypertensive Medication Adherence - Resume all prescribed antihypertensive medications as scheduled. - Missing doses can contribute to uncontrolled blood pressure and increase risk of cardiovascular events. - Reinforce the importance of daily adherence. Consider strategies such as pill organizers, medication reminders, or simplified regimens if adherence is a concern. - Monitor blood pressure at home if possible. - Advise to report persistent systolic BP >180 mmHg or diastolic BP >110 mmHg, or symptoms of hypertensive urgency/emergency (e.g., headache, vision changes, chest pain, shortness of breath). --- 4. General Return Precautions - Return to the emergency department or call 911 for: - Difficulty breathing or increased work of breathing - Chest pain, palpitations, or syncope - Signs of tracheostomy obstruction or accidental decannulation - Persistent vomiting or inability to tolerate oral fluids - New or worsening neurologic symptoms --- Summary of Evidence: - Oral and intravenous hydration are both effective for heat-related dehydration; oral fluids are preferred for mild/moderate cases. - Standardized tracheostomy care protocols, including regular cleaning and suctioning, reduce risk of life-threatening airway events. - Adherence to antihypertensive therapy is critical for blood pressure control and prevention of complications; multiple strategies can improve adherence. Print Language: Armenian Coding Level of Care Code ED Dry Clipper Tender for Bret Wise
[2024-09-16] VITALS: BP 181/82; PULSE 65; RESP 19; O2SAT 98
[2024-09-16] MEDS: LORazepam 1 MG/0.5 ML injection IVP (00:16)
[2024-09-16 00:45] VITALS: BP 133/73; PULSE 56; RESP 20; O2SAT 93
[2024-09-16 01:16] LABS: Troponin 5 2HR 9.35 ng/L (0-15)
[2024-09-16 01:17] LABS: Troponin 5 2HR Delta -3.65 ABS# (0-10)
== END 2024-09-16 01:30 | disposition home or self-care (01) ==
PROVIDERS: Emergency Provider Physician Assistant; PCP Nurse Practitioner Family
DX: E86.0 Dehydration (principal); I10 Essential (primary) hypertension; E11.9 Type 2 diabetes mellitus without complications; Z93.0 Tracheostomy status
CPT/HCPCS: 36415; 71045; 80053; 84484; 85025; 93005; 96374; 99285; J2060; J7030

== ENCOUNTER 2024-10-10 23:31 | Emergency (ER) | payer MEDICARE, SELFPAY ==
[2024-10-10 23:36] VITALS: BP 120/69; PULSE 61; RESP 22; TEMP 36.4; O2SAT 96; BMI 35.4
--- OUTSIDE RECORDS SUMMARY | 2024-10-10 23:42 | XMS_ITS | Clinical Summary ---
Author Organization [facility] Address [address] [place] [address] Phone Care Team Providers Care Coastal Tug Mate Name Role Phone System, Pcp Not In Primary Care Provider Unavail able Allergies Active Allergy Reactions Criticality Noted Date Comments Carbamazepine Rash Low 04/27/2016 Cefaclor Unknown 12/07/2017 Metronidazole Rash Low 04/27/2016 Encounters Date Type Department Care Team Description 07/19/2024 Orders Only [facility] Neu[facility] [address] [place] [id number] Florinda Rios Confusion (Primary Dx) 07/17/2024 Orders Only [facility] Neurology [address] [place] [id number] System, Pcp Not In Confusion; Disorientation from Last 3 Months Social History Tobacco [...] Zoster Vaccine (Shingles) (1 of 2) 2013 Flu Vaccine (#1) 10/29/2024 RSV Immunization Pa tients or 60+ Years (1 - 1-dose 75+ series) 2038 Pneumococcal Vaccine Age 50+ Completed 09/24/2021 Insurance MEDICAID [place] Care Teams Coastal Tug Mate Relationship Specialty Start Date End Date System, Pcp Not In PCP - General 07/19/24
--- OUTSIDE RECORDS SUMMARY | 2024-10-10 23:42 | XMS_ITS | Encounter Summary ---
Author Organization [facility] Address [address] [place] [place] [address] Phone Care Team Providers [employer] Executive [employer] Name Role Phone System, Pcp Not In Primary Care Provider Unavail able Encounter Details Date Type Department Care Team (Late st Contact Info) Description 07/17/2024 Orders Only [facility] Neurology [address] [place] [phone] System, Pcp Not In Confusion; Disorientation [...] symptoms documented in this encounter Care Teams Solutions Executive Security Relationship Specialty Start Date End Date System, Pcp Not In PCP - General 07/19/24 documented as of this encounter
--- NOTE | 2024-10-11 00:01 | XRR_ITS ---
PROCEDURE INFORMATION: Exam: XR Chest Exam date and time: 10/11/2024 1:04 AM Age: 59 years old Clinical indication: Dyspnea; Additional info: Shortness of breath TECHNIQUE: Imaging protocol: Radiologic exam of the chest. Views: 1 view. COMPARISON: CR (CHEST, ) 09/16/2024 12:14 AM FINDINGS: Tubes, catheters and devices: Tracheostomy tube present. Lungs: No large focal consolidation. Pleural spaces: No large pleural effusion. No distinct pneumothorax. Heart/Mediastinum: Cardiomediastinal silhouette is midline and stable in size. Bones/joints: Osseous structures are unchanged. XR/XR chest 1V portable [id number] IMPRESSION: No acute cardiopulmonary findings.
--- NOTE | 2024-10-11 00:51 | W.ED.BACK ---
HPI - Back Pain/Injury General: Chief Complaint: Back Pain/Injury Stated Complaint: mother wants pt seen Trouble breathing Time Seen by Provider: 10/11/24 00:38 History of Present Illness: 59-year-old man with a history of tracheostomy, type 2 diabetes bipolar affective disorder, disruptive behavior disorder, developmental delay who presents the emergency room with caregivers. Apparently his mother sent a letter and wanted him evaluated. She wanted his tracheostomy evaluated she wanted his medications adjusted. She had several other requests that are not appropriate for the emergency room. However I did state that the patient has been little more short of breath so we are going to do shortness of breath workup. Related Data Home Medications ?Medication ?Instructions ?Recorded ?Confirmed hydroxyzine HCl 25 mg tablet 25 mg PO BID PRN ANXIETY 07/09/24 10/03/24 Previous Rx's ?Medication ?Instructions ?Recorded acetaminophen 325 mg capsule 650 mg (2 x 325 mg) PO Q4H PRN as 03/21/24 needed for pain or elevated temperature #60 caps benztropine 1 mg tablet 1 mg PO BID #60 tabs 03/21/24 ziprasidone HCl 40 mg capsule 40 mg PO ONCE #30 caps 03/21/24 ziprasidone HCl 80 mg capsule 80 mg PO ONCE #30 caps 03/21/24 blood-glucose meter (True Metrix #1 ea 04/06/24 Glucose Meter) ondansetron 4 mg disintegrating 4 mg PO Q8H PRN nausea and 08/23/24 tablet vomiting #30 tabs blood sugar diagnostic (True #300 ea 09/04/24 Metrix Glucose Test Strip) calcium 600 mg (as 1 tab PO BID #180 tabs 09/04/24 carbonate)-vitamin D3 10 mcg (400 unit) tablet (Calcium with Vitamin D) divalproex 500 mg tablet,extended 500 mg PO BID #60 tabs 09/04/24 release 24 hr docusate sodium 100 mg capsule 100 mg PO DAILY #90 caps 09/04/24 fluticasone propionate 50 2 spray intranasal DAILY #16 grams 09/04/24 mcg/actuation nasal spray,suspension (Allergy Relief (fluticasone)) furosemide 20 mg tablet (Lasix) 20 mg PO QAM #90 tabs 09/04/24 hydrogen peroxide 3 % solution 1 applic topical DAILY PRN trach 09/04/24 care #473 mL lancets 31 gauge (Ultra Thin #300 ea 09/04/24 Lancets) levothyroxine 88 mcg capsule 88 mcg PO DAILY #90 caps 09/04/24 menthol 0.44 %-zinc oxide 20.6 % 1 applic topical QID PRN skin 09/04/24 topical ointment (Calmoseptine) irritation #113 grams olanzapine 7.5 mg tablet 7.5 mg PO DAILY #90 tabs 09/04/24 polyethylene glycol 3350 17 17 g PO DAILY PRN constipation 09/04/24 gram/dose oral powder (Miralax) #510 grams potassium chloride 10 mEq 10 meq PO DAILY #90 tabs 09/04/24 tablet,extended release sodium chloride 0.9 % irrigation 1 irrig irrigation DAILY PRN trach 09/04/24 solution care #12,000 mL rollator 4 wheels with seat #1 ea 09/06/24 lisinopril 10 mg tablet 10 mg PO QAM #90 tabs 09/07/24 metformin 1,000 mg tablet 1,000 mg PO BID #180 tabs 09/07/24 manual wheelchair #1 ea 09/13/24 amoxicillin 875 mg-potassium 1 tab PO BID 7 days #14 tabs 10/03/24 clavulanate 125 mg tablet Allergies Allergy/AdvReac Type Severity Reaction Status Date / Time metronidazole (From Flagyl) Allergy Unknown Verified 10/03/24 15:01 carbamzepine Allergy Unknown Uncoded 10/03/24 15:01 ceclor Allergy Unknown Uncoded 10/03/24 15:01 Review of Systems Narrative: Constitutional symptoms: Negative except as documented in HPI. Skin symptoms: Negative except as documented in HPI. Eye symptoms: Negative except as documented in HPI. ENMT symptoms: Negative except as documented in HPI. Respiratory symptoms: Negative except as documented in HPI. Cardiovascular symptoms: Negative except as documented in HPI. Gastrointestinal symptoms: Negative except as documented in HPI. Genitourinary symptoms: Negative except as documented in HPI. Musculoskeletal symptoms: Negative except as documented in HPI. Neurologic symptoms: Negative except as documented in HPI. Psychiatric symptoms: Negative except as documented in HPI. Endocrine symptoms: Negative except as documented in HPI. PFS ED PFSH: Medical History (Updated 10/11/24 @ 01:57 by Taylor Thomson MD) Type 2 diabetes mellitus Hypertension Hx of sleep apnea Tracheostomy tube present Bipolar affective disorder Disruptive behavior disorder Chronic allergic rhinitis Social History Smoking and tobacco/nicotine status: current every day tobacco/nicotine user (chew pouches) Physical Exam Narrative: EXAM NARRATIVE: General: Alert, no acute distress. Skin: Warm, dry. Head: Normocephalic, atraumatic. Neck: Supple, trachea midline. Tracheostomy in place Eye: Extraocular movements are intact. Ears, nose, mouth and throat: mucosa moist. Cardiovascular: Regular, Normal peripheral perfusion. Respiratory: Lungs are clear to auscultation, respirations are non-labored, breath sounds are equal, Symmetrical chest wall expansion. Gastrointestinal: Soft, Nontender, Non distended Musculoskeletal: Normal ROM, no deformity. Neurological: Alert and oriented, No focal neurological deficit observed. Psychiatric: Odd affect, yells out frequently Course Vital Signs: Vital signs: Vital Signs Temperature 97.5 F L 10/10/24 23:36 Pulse Rate 61 10/10/24 23:36 Respiratory Rate 22 H 10/10/24 23:36 Blood Pressure 120/69 10/10/24 23:36 Pulse Oximetry 96 10/10/24 23:36 Oxygen Delivery Me thod Room Air 10/10/24 23:36 MDM - Back Pain/Injury Medical Decision Making Differential diagnosis for patient with shortness of breath includes but is not limited to and based on the above HPI, review of systems and physical exam: Pneumonia. Bronchitis. Asthma or COPD with acute exacerbation. Acute coronary syndrome / MT. Pulmonary embolism. Anxiety. Congestive heart failure. Viral infections including influenza and Covid-19. Atrial fibrillation. Anxiety. Pleural effusion. Pneumothorax. Orders placed to evaluate differential diagnosis based on the above differential, HPI and physical exam Chest x-ray: No acute process. No infiltrate. No pneumothorax. Films were interpreted by myself the emergency room provider and pending final radiology review. Lab Review: Laboratory results were reviewed and interpreted by myself the emergency room physician. No leukocytosis. No anemia. No renal failure. Glucose is little elevated at 254. I reviewed the patient's medical record. Reexamination: Patient remained stable. No increased work of breathing. No altered mental status. No focal motor deficits. Assessment and plan: Shortness of breath - Discharged home - Discussed plan with patient. Answered any questions. - Evaluation and treatment of this problem were appropriate in the emergency setting. Labs 10/11/24 01:19 10/11/24 01:19 Laboratory Results WBC 3.58 10^3/uL (3.29-11.43) 10/11/24 01:19 RBC 3.88 10^6/uL (3.85-5.65) 10/11/24 01:19 Hgb 12.80 g/dL (11.27-16.99) 10/11/24 01:19 Hct 36.2 % (37-53) L 10/11/24 01:19 MCV 93.3 fl (82-101) 10/11/24 01:19 MCH 33.0 pg (27-33) 10/11/24 01:19 MCHC 35.4 g/dL (30-55) 10/11/24 01:19 RDW 12.9 % (12.1-15.1) 10/11/24 01:19 Plt Count 160 10^3/cmm (157-399) 10/11/24 01:19 MPV 9.0 fL (7.4-10.4) 10/11/24 01:19 Neut % (Auto) 49.6 % 10/11/24 01:19 Lymph % (Auto) 36.3 % 10/11/24 01:19 Craig % (Auto) 10.9 % 10/11/24 01:19 Eos % (Auto) 2.0 % 10/11/24 01:19 Baso % (Auto) 0.6 % 10/11/24 01:19 Neut # (Auto) 1.78 10^3/uL (1.8-7.7) L 10/11/24 01:19 Lymph # (Auto) 1.3 10^3/uL (0.8-4.8) 10/11/24 01:19 Craig # (Auto) 0.4 10^3/uL (0.2-0.9) 10/11/24 01:19 Eos # (Auto) 0.1 10^3/uL (0.0-0.8) 10/11/24 01:19 Baso # (Auto) 0.0 10^3/uL (0.0-0.1) 10/11/24 01:19 Nucleated RBC % (auto) 0 % 10/11/24 01:19 Nucleated RBCs # 0.0 /100WBC 10/11/24 01:19 Sodium 131 mmol/L (136-145) L 10/11/24 01:19 Potassium 4.9 mmol/L (3.5-5.1) 10/11/24 01:19 Chloride 98 mmol/L (98-107) 10/11/24 01:19 Carbon Dioxide 23 mmol/L (22-29) 10/11/24 01:19 Anion Gap 14.9 (5-19) 10/11/24 01:19 BUN 15 mg/dL (8-23) 10/11/24 01:19 Creatinine 0.7 mg/dL (0.7-1.2) 10/11/24 01:19 GFR Calculation 114.6 mL/min (90-130) 10/11/24 01:19 Glucose 254 mg/dL (65-115) H 10/11/24 01:19 Calculated Osmolality 281 mOsm/kg (285-295) L 10/11/24 01:19 Lactic Acid 2.1 mmol/L (0.5-2.2) 10/11/24 01:19 Calcium 9.5 mg/dL (8.5-10.5) 10/11/24 01:19 Total Bilirubin 0.2 mg/dL (0.15-1.2) 10/11/24 01:19 AST 15 U/L (0-40) 10/11/24 01:19 ALT 17 U/L (0-41) 10/11/24 01:19 Alkaline Phosphatase 47 U/L (40-130) 10/11/24 01:19 Total Protein 6.1 g/dL (6.6-8.7) L 10/11/24 01:19 Albumin 3.8 g/dL (3.5-5.2) 10/11/24 01:19 Globulin 2.3 g/dL (1.3-4.6) 10/11/24 01:19 XR interpretation done by ED provider, pending radiology final review Discharge Plan Discharge Patient Disposition: Home Clinical Impression: Shortness of breath, Hyperglycemia Condition: Stable Prescriptions: No Action sodium chloride 0.9 % solution 1 irrig irrigation DAILY PRN (Reason: trach care) Qty: 38714 5RF Rx Instructions: Use hydrogen peroxide & sodium cl for trach care as needed potassium chloride 10 mEq tablet extended release 10 meq PO DAILY Qty: 90 1RF Rx Instructions: 1 tablet by mouth every am for potassium supplement olanzapine 7.5 mg tablet 7.5 mg PO DAILY Qty: 90 1RF Rx Instructions: Take 1 tablet by mouth at bedtime menthol-zinc oxide [Calmoseptine] 0.44-20.6 % ointment 1 applic topical QID PRN (Reason: skin irritation) Qty: 113 5RF levothyroxine 88 mcg capsule 88 mcg PO DAILY Qty: 90 1RF Rx Instructions: take 1 tablet by mouth every day for hypothyroidism furosemide [Lasix] 20 mg tablet 20 mg PO QAM Qty: 90 1RF Rx Instructions: 1 tablet every am for edema fluticasone propionate [Allergy Relief (fluticasone)] 50 mcg/actuation spray,suspension 2 spray intranasal DAILY Qty: 16 5RF Rx Instructions: administer into each nostril docusate sodium 100 mg capsule 100 mg PO DAILY Qty: 90 1RF Rx Instructions: Take 1 capsule by mouth every evening divalproex 500 mg tablet extended release 24 hr 500 mg PO BID Qty: 60 0RF Rx Instructions: Take 1 tablet by mouth 2 times a day for bipolar affective disorder calcium carbonate-vitamin D3 [Calcium with Vitamin D] 600 mg-10 mcg (400 unit) tablet 1 tab PO BID Qty: 180 1RF (DME) Ultra Thin Lancets 31 gauge misc See Rx Instructions .Route Qty: 300 3RF Rx Instructions: As directed (DME) True Metrix Glucose Test Strip Strip See Rx Instructions .Route Qty: 300 3RF Rx Instructions: As directed hydrogen peroxide 3 % solution 1 applic topical DAILY PRN (Reason: trach care) Qty: 473 5RF Rx Instructions: Use with sodium chloride for trach care a needed. polyethylene glycol 3350 [Miralax] 17 gram/dose powder 17 g PO DAILY PRN (Reason: constipation) Qty: 510 5RF (DME) rollator 4 wheels with seat See Rx Instructions .Route .MEDSUPPLY Qty: 1 0RF Rx Instructions: As directed (DME) manual wheelchair See Rx Instructions .Route .MEDSUPPLY Qty: 1 0RF Rx Instructions: As directed ondansetron 4 mg tablet,disintegrating 4 mg PO Q8H PRN (Reason: nausea and vomiting) Qty: 30 2RF amoxicillin-pot clavulanate 875-125 mg tablet 1 tab PO BID 7 Days Qty: 14 0RF benztropine 1 mg tablet 1 mg PO BID Qty: 60 0RF Rx Instructions: Take 1 tablet by mouth 2 times a day for EPS ziprasidone HCl 80 mg capsule 80 mg PO ONCE Qty: 30 0RF Rx Instructions: give with food (meal/snack) at bedtime ziprasidone HCl 40 mg capsule 40 mg PO ONCE Qty: 30 0RF Rx Instructions: give with food (meal/snack)in am acetaminophen 325 mg capsule 650 mg PO Q4H PRN (Reason: as needed for pain or elevated temperature) Qty: 60 5RF (DME) blood-glucose meter [True Metrix Glucose Meter] Misc See Rx Instructions .Route Qty: 1 0RF Rx Instructions: As directed lisinopril 10 mg tablet 10 mg PO QAM Qty: 90 0RF Rx Instructions: take one tab by mouth in am metformin 1,000 mg tablet 1,000 mg PO BID Qty: 180 1RF hydroxyzine HCl 25 mg tablet 25 mg PO BID PRN (Reason: ANXIETY ) Discharge Orders: Discharge ED (Routine); Ordered 10/11/24 Ordered By: Taylor Thomson Referrals: Florinda Rios FNP-C [Primary Care Provider, Family Practice] Discharge Diet: Usual diet Discharge Activity: Increase activity as tolerated Patient Instructions: Opioid Safety, Pain Management, Patient Portal & Trevon Instructions Activity Restrictions/Additional Instructions: You need to be evaluated by your primary care provider. 1 you need to look into adjusting your diabetic medications because most of the times you have been here your glucose has been elevated. Also adjusting your other medications would be the duty of your primary provider. And if tracheostomy needs change that is either your primary or administrative services coordinator. Thank you for choosing [facility] for your healthcare needs today. You have been screened and evaluated and felt safe for discharge. Health conditions do change or evolve sometimes and as such it is important that you follow up with your Primary Doctor to be re checked, 3-5 days is a general good time frame for follow up. You are always welcome to return to the ED for re assessment if your symptoms are worsening or you have new concerns Print Language: Japanese Coding Level of Care Code ED Systems Project Manager for Bret Wise
[2024-10-11 01:29] LABS: Hematocrit 36.2 % (37-53); Hemoglobin 12.80 g/dL (11.27-16.99); Mean Corpuscular HGB Conc 35.4 g/dL (30-55); Mean Corpuscular Hemoglobin 33.0 pg (27-33); Mean Corpuscular Volume 93.3 fl (82-101); Nucleated Red Blood Cells % 0 %; Platelet Count 160 10^3/cmm (157-399); Red Blood Count 3.88 10^6/uL (3.85-5.65); White Blood Count 3.58 10^3/uL (3.29-11.43)
[2024-10-11 01:48] LABS: Alanine Aminotransferase 17 U/L (0-41); Albumin Level 3.8 g/dL (3.5-5.2); Alkaline Phosphatase 47 U/L (40-130); Anion Gap 14.9 (5-19); Aspartate Amino Transferase 15 U/L (0-40); Blood Urea Nitrogen 15 mg/dL (8-23); Calcium 9.5 mg/dL (8.5-10.5); Carbon Dioxide 23 mmol/L (22-29); Chloride 98 mmol/L (98-107); Creatinine Clr Calc Pharmacy 134.7464; Globulin 2.3 g/dL (1.3-4.6); Glucose 254 mg/dL (65-115); Osmolality Calculated 281 mOsm/kg (285-295); Potassium 4.9 mmol/L (3.5-5.1); Sodium 131 mmol/L (136-145); Total Protein 6.1 g/dL (6.6-8.7)
[2024-10-11 01:49] LABS: Lactic Sepsis W/Reflex 2.1 mmol/L (0.5-2.2)
[2024-10-11 02:05] LABS: Respiratory Syncytial Virus Ce NEGATIVE (Negative); SARS-CoV-2 PCR NEGATIVE (Negative)
[2024-10-11 02:21] VITALS: BP 129/58; PULSE 52; RESP 14; O2SAT 94
[2024-10-11 03:11] LABS: Reflex Lactate Order REFLEX LACTIC ORDERD
== END 2024-10-11 02:24 | disposition home or self-care (01) ==
PROVIDERS: Emergency Provider Emergency Medicine; PCP Nurse Practitioner Family
DX: R06.02 Shortness of breath (principal); Z79.84 Long term (current) use of oral hypoglycemic drugs; F17.290 Nicotine dependence, other tobacco product, uncomplicated; E11.65 Type 2 diabetes mellitus with hyperglycemia; I10 Essential (primary) hypertension; Z93.0 Tracheostomy status
CPT/HCPCS: 36415; 71045; 80053; 83605; 85025; 87637; 99284

== ENCOUNTER 2024-10-22 20:28 | Emergency (ER) | payer MEDICARE, SELFPAY ==
[2024-10-22 20:29] VITALS: BP 179/84; PULSE 64; RESP 20; TEMP 36.4; O2SAT 98; BMI 26.6
--- OUTSIDE RECORDS SUMMARY | 2024-10-22 20:32 | XMS_ITS | Encounter Summary ---
Author Organization [facility] Address [address] [facility] [place] [address] Phone Care Team Providers Care Corporate Paralegal Name Role Phone System, Pcp Not In Primary Care Provider Unavail able Encounter Details Date Type Department Care Team (Late st Contact Info) Description 07/17/2024 Orders Only [facility] Neurology [address] [facility] [address] [place] [address] System, Pcp Not In Confusion; Disorientation [...] symptoms documented in this encounter Care Teams Corporate Paralegal Relationship Specialty Start Date End Date System, Pcp Not In PCP - General 07/19/24 documented as of this encounter
--- OUTSIDE RECORDS SUMMARY | 2024-10-22 20:32 | XMS_ITS | Clinical Summary ---
Author Organization [facility] Address [address] [place] [address] Phone Care Team Providers Care Supervisor Lime Name Role Phone System, Pcp Not In Primary Care Provider Unavail able Allergies Active Allergy Reactions Criticality Noted Date Comments Carbamazepine Rash Low 04/27/2016 Cefaclor Unknown 12/07/2017 Metronidazole Rash Low 04/27/2016 Social History Tobacco Use Types Packs/Day Years [...] Vaccine Age 50+ Completed 09/24/2021 Insurance MEDICAID [place] [employer] Care Teams Supervisor Lime Relationship Specialty Start Date End Date System, Pcp Not In PCP - General 07/19/24
[2024-10-22 21:14] VITALS: BP 198/55; PULSE 66; O2SAT 96
--- NOTE | 2024-10-22 21:29 | XRR_ITS ---
PROCEDURE INFORMATION: Exam: XR Left Knee Exam date and time: 10/22/2024 9:43 PM Age: 59 years old Clinical indication: Injury or trauma; Fall; Blunt trauma; Knee; Bilateral; Additional info: Fall, contusion TECHNIQUE: Imaging protocol: Radiologic exam of the left knee. Views: 1 or 2 views. COMPARISON: No relevant prior studies available. FINDINGS: Bones/joints: Mild patellofemoral bony degenerative change. No definite acute fracture, subluxation, dislocation. Soft tissues: Normal. XR/XR knee LT 1-2V [id number] IMPRESSION: Mild patellofemoral bony degenerative change. No definite acute fracture, subluxation, dislocation.
--- NOTE | 2024-10-22 21:29 | XRR_ITS ---
PROCEDURE INFORMATION: Exam: XR Right Knee Exam date and time: 10/22/2024 9:41 PM Age: 59 years old Clinical indication: Injury or trauma; Fall; Blunt trauma; Knee; Bilateral; Additional info: Fall, contusion TECHNIQUE: Imaging protocol: Radiologic exam of the right knee. Views: 1 or 2 views. COMPARISON: No relevant prior studies available. FINDINGS: Bones/joints: Mild patellofemoral bony degenerative change. Prepatellar soft tissue swelling, possibly small effusion. No definite acute fracture, subluxation, dislocation. Soft tissues: See Bones/joints finding. XR/XR knee RT 1-2V [id number] IMPRESSION: Mild patellofemoral bony degenerative change. Prepatellar soft tissue swelling, possibly small effusion. No definite acute fracture, subluxation, dislocation.
--- NOTE | 2024-10-22 21:30 | CTR_ITS ---
PROCEDURE INFORMATION: Exam: CT Head Without Contrast Exam date and time: 10/22/2024 9:37 PM Age: 59 years old Clinical indication: Injury or trauma; Fall; Blunt trauma (contusions or hematomas); Without loss of consciousness; Additional info: Fall, contusion TECHNIQUE: Imaging protocol: Computed tomography of the head without contrast. Radiation optimization: All CT scans at this facility use at least one of these dose optimization techniques: automated exposure control; mA and/or kV adjustment per patient size (includes targeted exams where dose is matched to clinical indication); or iterative reconstruction. COMPARISON: CT head wo con* [id number] 07/09/2024 2:34 PM RADIATION DOSE METRICS: Total DLP (mGy-cm): 937.7 FINDINGS: Brain: Normal. No hemorrhage. Unremarkable white matter. No mass effect. Cerebral ventricles: No ventriculomegaly. Paranasal sinuses: Visualized sinuses are unremarkable. No fluid levels. Mastoid air cells: Visualized mastoid air cells are well aerated. Bones: Unremarkable. No acute fracture. Soft tissues: Unremarkable. CT/CT head wo con* [id number] IMPRESSION: No acute intracranial abnormality. Specifically, no fracture or hemorrhage
--- NOTE | 2024-10-22 21:30 | CTR_ITS ---
PROCEDURE INFORMATION: Exam: CT Cervical Spine Without Contrast Exam date and time: 10/22/2024 9:37 PM Age: 59 years old Clinical indication: Injury or trauma; Fall; Blunt trauma; Prior surgery; Surgery date: 6+ months; Surgery type: Cspine; Additional info: Fall, contusion TECHNIQUE: Imaging protocol: Computed tomography of the cervical spine without contrast. Radiation optimization: All CT scans at this facility use at least one of these dose optimization techniques: automated exposure control; mA and/or kV adjustment per patient size (includes targeted exams where dose is matched to clinical indication); or iterative reconstruction. COMPARISON: CT head wo con* [id number] 07/09/2024 2:34 PM RADIATION DOSE METRICS: Total DLP (mGy-cm): 344.9 FINDINGS: Motion artifact limits exam. Bones: No acute fracture. Normal alignment. No significant disc bulge or herniation. No severe spinal canal stenosis. No significant neural foraminal narrowing. Lungs: Lung apices are normal. Soft tissues: Atheromatous calcifications of the carotids. Tracheostomy tube in place. Otherwise Unremarkable. CT/CT cervical spin wo con* [id number] IMPRESSION: No acute cervical spine fracture. Carotid atherosclerosis.
[2024-10-22 22:00] VITALS: BP 158/86; PULSE 70; O2SAT 93
[2024-10-22 23:00] VITALS: BP 154/87; PULSE 70; O2SAT 93
--- NOTE | 2024-10-22 23:14 | W.ED.FALL ---
HPI - Fall General: Chief Complaint: Fall Stated Complaint: Fell, Back & legs hurt, abd pain Time Seen by Provider: 10/22/24 21:15 History of Present Illness: Patient is a 59-year-old gentleman with chronic trach, reports to ED with his family after a fall. It was a trip, fall, on his knees, and the side of his head. His main knee is his right knee. He has chronic hip pain. His abdomen is secondary to his diet tonight and was not disturbed during his forward and sideways fall. This occurred just prior to arrival. He does utilize a walker on a full-time basis. Associated symptoms-after fall: Denies abdominal pain, chest pain, headache(s) or neck pain Related Data Home Medications ?Medication ?Instructions ?Recorded ?Confirmed hydroxyzine HCl 25 mg tablet 25 mg PO BID PRN ANXIETY 07/09/24 10/16/24 Previous Rx's ?Medication ?Instructions ?Recorded acetaminophen 325 mg capsule 650 mg (2 x 325 mg) PO Q4H PRN as 03/21/24 needed for pain or elevated temperature #60 caps benztropine 1 mg tablet 1 mg PO BID #60 tabs 03/21/24 ziprasidone HCl 40 mg capsule 40 mg PO ONCE #30 caps 03/21/24 ziprasidone HCl 80 mg capsule 80 mg PO ONCE #30 caps 03/21/24 blood-glucose meter (True Metrix #1 ea 04/06/24 Glucose Meter) ondansetron 4 mg disintegrating 4 mg PO Q8H PRN nausea and 08/23/24 tablet vomiting #30 tabs blood sugar diagnostic (True #300 ea 09/04/24 Metrix Glucose Test Strip) calcium 600 mg (as 1 tab PO BID #180 tabs 09/04/24 carbonate)-vitamin D3 10 mcg (400 unit) tablet (Calcium with Vitamin D) divalproex 500 mg tablet,extended 500 mg PO BID #60 tabs 09/04/24 release 24 hr docusate sodium 100 mg capsule 100 mg PO DAILY #90 caps 09/04/24 fluticasone propionate 50 2 spray intranasal DAILY #16 grams 09/04/24 mcg/actuation nasal spray,suspension (Allergy Relief (fluticasone)) furosemide 20 mg tablet (Lasix) 20 mg PO QAM #90 tabs 07/08/25 hydrogen peroxide 3 % solution 1 applic topical DAILY PRN trach 09/04/24 care #473 mL lancets 31 gauge (Ultra Thin #300 ea 09/04/24 Lancets) levothyroxine 88 mcg capsule 88 mcg PO DAILY #90 caps 09/04/24 menthol 0.44 %-zinc oxide 20.6 % 1 applic topical QID PRN skin 09/04/24 topical ointment (Calmoseptine) irritation #113 grams olanzapine 7.5 mg tablet 7.5 mg PO DAILY #90 tabs 09/04/24 polyethylene glycol 3350 17 17 g PO DAILY PRN constipation 09/04/24 gram/dose oral powder (Miralax) #510 grams potassium chloride 10 mEq 10 meq PO DAILY #90 tabs 09/04/24 tablet,extended release sodium chloride 0.9 % irrigation 1 irrig irrigation DAILY PRN trach 09/04/24 solution care #12,000 mL rollator 4 wheels with seat #1 ea 09/06/24 lisinopril 10 mg tablet 10 mg PO QAM #90 tabs 09/07/24 metformin 1,000 mg tablet 1,000 mg PO BID #180 tabs 09/07/24 manual wheelchair #1 ea 09/13/24 amoxicillin 875 mg-potassium 1 tab PO BID 7 days #14 tabs 10/03/24 clavulanate 125 mg tablet Allergies Allergy/AdvReac Type Severity Reaction Status Date / Time metronidazole (From Flagyl) Allergy Unknown Verified 10/22/24 20:39 carbamzepine Allergy Unknown Uncoded 10/22/24 20:39 ceclor Allergy Unknown Uncoded 10/22/24 20:39 Review of Systems Const: Denies: fever(s) or chills Eyes: Denies: change in vision or blurry vision ENMT: Denies: throat pain or dry mouth Card: Denies: chest pain or palpitations Resp: Denies: dyspnea or productive cough GI: Denies: abdominal pain, nausea or vomiting Musc: Reports: extremity pain, joint pain and joint stiffness; Denies: neck pain, back pain, extremity swelling, joint swelling, joint redness, joint warmth or limited range of motion Skin/Breast: Denies: rash or pruritus Neuro: Denies: headache(s) or numbness in extremities Psych: Denies: anxiety or depression Endo: Denies: polyuria or polydipsia PFSH ED PFSH: Medical History (Updated 10/22/24 @ 23:21 by ORQUIDEA Cotto) Type 2 diabetes mellitus Hypertension Hx of sleep apnea Tracheostomy tube present Bipolar affective disorder Disruptive behavior disorder Chronic allergic rhinitis Social History Smoking and tobacco/nicotine status: current every day tobacco/nicotine user (chew pouches) Physical Exam Const: COMMON NORMALS: no acute distress, average body habitus, patient oriented x3, no limitations, healthy appearing, alert and well nourished GENERAL APPEARANCE: cooperative and comfortable HENMT: COMMON NORMALS: normocephalic, atraumatic and hearing grossly normal bilaterally HEAD & SCALP: normocephalic and atraumatic Eye: COMMON NORMALS: Equal, round and reactive pupils present, EOMs intact bilaterally and conjunctivae normal CONJUNCTIVA: Yes conjunctivae normal PUPIL: Yes Equal, round and reactive pupils present Neck/C-Spine: COMMON NORMALS: full ROM, no lymphadenopathy, supple and no meningeal signs GENERAL: Yes normal visual inspection, Yes trachea midline, No anterior neck swelling and Yes other (chronic trach) Lymph: LYMPHATIC: no lymphadenopathy noted Chest: COMMONS NORMALS: normal inspection of the chest, normal palpation of entire chest wall and normal palpation of the breasts BREAST/AXILLA PALPATION: Yes normal palpation of the breasts Resp: COMMON NORMALS: normal respiratory effort, No retractions and clear to auscultation bilaterally AUSCULTATION: clear to auscultation bilaterally Cardio: COMMON NORMALS: regular rate and regular rhythm RATE: regular rate RHYTHM: regular rhythm GI: COMMON NORMALS: Normal to inspection, nondistended, normoactive bowel sounds present, Soft to palpation, non-tender and No hepatosplenomegaly present PALPATION: Yes Soft to palpation and Yes No hepatosplenomegaly present : COMMON NORMALS: Yes no CVA tenderness BLADDER/KIDNEY EXAM: Yes no CVA tenderness Back/Pelvis: COMMON NORMALS: no CVA tenderness Extremity: COMMON NORMALS: normal to inspection, full ROM and capillary refill normal Neuro: COMMON NORMALS: patient oriented x3, CN's II-XII intact bilaterally and moves all extremities SENSORIUM/ORIENTATION: Yes alert MENINGEAL SIGNS: Yes no meningeal signs Psych: COMMON NORMALS: mental status grossly normal, Normal thought process present, cooperative, normal affect and speech normal SPEECH: Yes normal speech THOUGHT PROCESS: Normal thought process present Skin: COMMON NORMALS: no rashes or lesions noted, no wounds and turgor normal GENERAL SKIN EXAM: no rashes or lesions noted and turgor normal Course Vital Signs: Vital signs: Vital Signs Temperature 97.6 F 10/22/24 20:29 Pulse Rate 70 10/22/24 23:00 Respiratory Rate 20 H 10/22/24 20:29 Blood Pressure 154/87 10/22/24 23:00 Pulse Oximetry 93 10/22/24 23:00 Oxygen Delivery Me thod Room Air 10/22/24 23:00 MDM - Fall Medical Decision Making Patient is 59-year-old gentleman with chronic trach, chronic walker, that tripped, fell on his bilateral knees, and hit the side of his head to the car. He complains of bilateral knee pain, and hitting his head. He did initially complain of abdominal discomfort but this was associated with eating dinner and has resolved. On CT of the head, neck, and x-ray of bilateral knees, these are all negative for acute events. Patient be discharged home with Tylenol recommendations. All of his questions were answered to his satisfaction. Lab Data Radiology Impressions Knee X-Ray 10/22/24 21:29 IMPRESSION: Mild patellofemoral bony degenerative change. No definite acute fracture, subluxation, dislocation. Cervical Spine CT 10/22/24 21:30 IMPRESSION: No acute cervical spine fracture. Carotid atherosclerosis. Head CT 10/22/24 21:30 IMPRESSION: No acute intracranial abnormality. Specifically, no fracture or hemorrhage All radiology interpretation(s) finalized by discharge Discharge Plan Discharge Patient Disposition: Home Clinical Impression: Contusion of knee Qualifiers: Encounter type: initial encounter Laterality: unspecified laterality Qualified Code(s): S80.00XA - Contusion of unspecified knee, initial encounter Condition: Stable Prescriptions: No Action sodium chloride 0.9 % solution 1 irrig irrigation DAILY PRN (Reason: trach care) Qty: 20792 5RF Rx Instructions: Use hydrogen peroxide & sodium cl for trach care as needed potassium chloride 10 mEq tablet extended release 10 meq PO DAILY Qty: 90 1RF Rx Instructions: 1 tablet by mouth every am for potassium supplement olanzapine 7.5 mg tablet 7.5 mg PO DAILY Qty: 90 1RF Rx Instructions: Take 1 tablet by mouth at bedtime menthol-zinc oxide [Calmoseptine] 0.44-20.6 % ointment 1 applic topical QID PRN (Reason: skin irritation) Qty: 113 5RF levothyroxine 88 mcg capsule 88 mcg PO DAILY Qty: 90 1RF Rx Instructions: take 1 tablet by mouth every day for hypothyroidism furosemide [Lasix] 20 mg tablet 20 mg PO QAM Qty: 90 1RF Rx Instructions: 1 tablet every am for edema fluticasone propionate [Allergy Relief (fluticasone)] 50 mcg/actuation spray,suspension 2 spray intranasal DAILY Qty: 16 5RF Rx Instructions: administer into each nostril docusate sodium 100 mg capsule 100 mg PO DAILY Qty: 90 1RF Rx Instructions: Take 1 capsule by mouth every evening divalproex 500 mg tablet extended release 24 hr 500 mg PO BID Qty: 60 0RF Rx Instructions: Take 1 tablet by mouth 2 times a day for bipolar affective disorder calcium carbonate-vitamin D3 [Calcium with Vitamin D] 600 mg-10 mcg (400 unit) tablet 1 tab PO BID Qty: 180 1RF (DME) Ultra Thin Lancets 31 gauge misc See Rx Instructions .Route Qty: 300 3RF Rx Instructions: As directed (DME) True Metrix Glucose Test Strip Strip See Rx Instructions .Route Qty: 300 3RF Rx Instructions: As directed hydrogen peroxide 3 % solution 1 applic topical DAILY PRN (Reason: trach care) Qty: 473 5RF Rx Instructions: Use with sodium chloride for trach care a needed. polyethylene glycol 3350 [Miralax] 17 gram/dose powder 17 g PO DAILY PRN (Reason: constipation) Qty: 510 5RF (DME) rollator 4 wheels with seat See Rx Instructions .Route .MEDSUPPLY Qty: 1 0RF Rx Instructions: As directed (DME) manual wheelchair See Rx Instructions .Route .MEDSUPPLY Qty: 1 0RF Rx Instructions: As directed ondansetron 4 mg tablet,disintegrating 4 mg PO Q8H PRN (Reason: nausea and vomiting) Qty: 30 2RF amoxicillin-pot clavulanate 875-125 mg tablet 1 tab PO BID 7 Days Qty: 14 0RF benztropine 1 mg tablet 1 mg PO BID Qty: 60 0RF Rx Instructions: Take 1 tablet by mouth 2 times a day for EPS ziprasidone HCl 80 mg capsule 80 mg PO ONCE Qty: 30 0RF Rx Instructions: give with food (meal/snack) at bedtime ziprasidone HCl 40 mg capsule 40 mg PO ONCE Qty: 30 0RF Rx Instructions: give with food (meal/snack)in am acetaminophen 325 mg capsule 650 mg PO Q4H PRN (Reason: as needed for pain or elevated temperature) Qty: 60 5RF (DME) blood-glucose meter [True Metrix Glucose Meter] Misc See Rx Instructions .Route Qty: 1 0RF Rx Instructions: As directed lisinopril 10 mg tablet 10 mg PO QAM Qty: 90 0RF Rx Instructions: take one tab by mouth in am metformin 1,000 mg tablet 1,000 mg PO BID Qty: 180 1RF hydroxyzine HCl 25 mg tablet 25 mg PO BID PRN (Reason: ANXIETY ) Discharge Orders: Discharge ED (Routine); Ordered 10/22/24 Ordered By: Susan Blum Referrals: Florinda Rios FNP-C [Primary Care Provider, Family Practice] Discharge Diet: Usual diet Discharge Activity: Use walker/crutches as instructed Patient Instructions: P.R.I.C.E. Treatment (ED), Patient Portal & Trevon Instructions Activity Restrictions/Additional Instructions: Ice your knees for comfort You may utilize Tylenol and ibuprofen for pain Follow-up with your primary care physician regarding today's visit. Your x-rays and CT were negative, however this will need to be followed. As well, sometimes additional physical therapy and reevaluation of gait will be ordered by your doctor. Utilize your walker for safety at all times Return to ED for additional issues with your fall, fever greater than 100.4 ?F Print Language: Bhutanese Coding Level of Care Code ED Inspector Rag Sorting for Bret Wise
[2024-10-22 23:34] VITALS: BP 154/87; PULSE 66; RESP 16; O2SAT 93
== END 2024-10-22 23:33 | disposition home or self-care (01) ==
PROVIDERS: Emergency Provider Physician Assistant; PCP Nurse Practitioner Family
DX: S80.01XA Contusion of right knee, initial encounter (principal); W01.0XXA Fall on same level from slipping, tripping and stumbling without subsequent striking against object, initial encounter; E11.9 Type 2 diabetes mellitus without complications; I10 Essential (primary) hypertension; F17.220 Nicotine dependence, chewing tobacco, uncomplicated; Z79.84 Long term (current) use of oral hypoglycemic drugs; M25.562 Pain in left knee
CPT/HCPCS: 70450; 72125; 73560; 99284

== ENCOUNTER → 2024-11-01 13:17 | Outpatient (BNVA) | payer MEDICARE, SELFPAY | PROVIDERS: PCP Nurse Practitioner Family; Visit Provider Nurse Practitioner Family | DX: F31.9 Bipolar disorder, unspecified (principal) | CPT/HCPCS: 80164 ==

== ENCOUNTER → 2024-12-03 11:05 | Outpatient (BNVA) | payer MEDICARE, MEDICAID, SELFPAY | PROVIDERS: PCP Nurse Practitioner Family; Visit Provider Nurse Practitioner Family | DX: E11.9 Type 2 diabetes mellitus without complications (principal) | CPT/HCPCS: 83036 ==

== ENCOUNTER 2024-12-21 21:04 | Emergency (ER) | payer MEDICARE, MEDICAID, SELFPAY ==
--- OUTSIDE RECORDS SUMMARY | 2024-12-21 21:10 | XMS_ITS | Data Portability ---
Author Organization PAULA Denis Hubbard [facility] [place], [facility] Address [address] [place] [address] Assessment No assessment recorded. Plan of Treatment Reminders Order Date Submit Date Provider Last Modified By Organization Details Last Modified Time Details Appointments None recorded. Lab urinalysis , dipstick [email or web address] [facility] ([facility]), [address] [place], [address], 17:49:04 culture, urine 2024 025 [employer] [facility], [address] [place] [address], [facility] [address] [place], [address], 22:46:30 Referral None recorded. Procedures None recorded. Surgeries None recorded. Imaging None recorded. Medication Orders None recorded. Patient TargetsNo targets recorded. Patient InstructionsNo instructions recorded. Reason for Referral None Reported. Results Created Date Observation Date Name Description Value Unit Range Abnormal Flag Note LastModifiedBy Organization Detail LastModifiedTime 06/06/1906/05/2024 urina lysis , dipst ick Leukocytes Negati ve Not Available [facility] ([facility]) [address] [place], [address], 06/05/2024 17:29:09 06/06/19 25 06/05/2024 urina lysis , dipst ick Nitrite negati ve Not Available [facility] ([facility]) [address] [place], [address], 06/05/2024 17:29:09 06/06/19 25 06/05/2024 urina lysis , dipst ick Urobilinogen .2 Not Available [facility] ([facility]) [address] [place], [address], 06/05/2024 17:29:09 06/06/19 25 06/05/2024 urina lysis , dipst ick Protein Negati ve Not Available [facility] ([facility]) [address] [place], [address], 06/05/2024 17:29:09 06/06/19 25 06/05/2024 urina lysis , dipst ick pH 6.0 Not Available [facility] ([facility]) [address] [place], [address], 06/05/2024 17:29:09 06/06/19 25 06/05/2024 urina lysis , dipst ick Blood Negati ve Not Available [facility] ([facility]) [address] [place], [address], 06/05/2024 17:29:09 06/06/19 25 06/05/2024 urina lysis , dipst ick Specific [place] 1.025 Not Available [facility] ( [facility]) [address] [place], [address], 06/05/2024 17:29:09 06/06/19 25 06/05/2024 urina lysis , dipst ick Ketone Trace Not Available [facility] ([facility]) [address] [place], [address], 06/05/2024 17:29:09 06/06/19 25 06/05/2024 urina lysis , dipst ick Bilirubin Negati ve Not Available [facility] ([facility]) [address] [place], [address], 06/05/2024 17:29:09 06/06/19 25 06/05/2024 urina lysis , dipst ick Glucose [address] [facility] ([facility]) [address] [place], [address], 06/05/2024 17:29:09 06/07/19 25 06/07/2024 CULTU RE, URINE , ROUTI NE culture, urine, routine SEE NOTE CULTU RE, URINE , ROUTI NE Micro Numbe r: [id number] Test Statu s: Final Speci men [...] Cultu re Trans port Tube. Not Available [facility] [address] [place], [address], 06/07/2024 22:46:29 Result Notes None recorded. Medical [...] Last Updated DateTime 175.26 cm 30 kg/m2 49036.2 5 g 96 % 96 % 79 /min 16 /min 98.2 [degF] 160/80 mm[Hg] Swapna Kadenyadira [facility] 17:36:31 Social History None recorded. Functional Status None recorded. Mental Status None recorded. Family History Nothing Reported. Medical History No medical history recorded. Past Encounters Encounter ID Performer Location Encounter Start Date Encounter Closed Date Diagnosis/Indication Diagnosis SNOMED-CT Code Diagnosis ICD10 Code Diagnosis IMO Codes Diagnosis Note [id number] JOAN ROSNETHAL [facility] ([facility]) [address] [place] [address] 06/05/2024 17:20:12 06/05/2024 17:55:54 Dysuria 74769425 R30.0 Chronic back pain 936939 002 G89.29 No signs of urinary tract [...] 06/06/2024 2 [place] Travon Valladares Michelle [id number] [facility] Benjamin 06/06/2024 1 [place] Travon Valladares Michelle [id number] [facility] 06/06/2024 [place] [facility] (MEDICARE) Travon Valladares Michelle [id number] [facility] Benjamin 06/06/2024 [place] [facility] Travon Vlaladares Michelle [id number] [facility] Notes Date Note Type Note Provider Name and Address Organization Details Recorded Time 06/05/2024 text/html Back PainReporte d by PatientROS as noted in the HPI walk in patientpatient is here today for lower back pain and manager managed care just wanted his urine checked. Patient said that he has had back pain for many years. no meds administered. no change to chronic back pain. pt has appt with PCP tomorrow. Pt's mother wanted to make sure the pain was not caused from a UTI. pt deneis any urinary symptoms. RAINER MOY, MOTEL KEEPER [address] [place], [address], [facility] 06/05/2024 17:52:54
[2024-12-21 21:35] VITALS: BP 147/75; PULSE 68; RESP 14; TEMP 36.8; O2SAT 98
== END 2024-12-22 01:11 | disposition left against medical advice (07) ==
PROVIDERS: Emergency Provider Emergency Medicine; PCP Nurse Practitioner Family
DX: Z53.21 Procedure and treatment not carried out due to patient leaving prior to being seen by health care provider (principal)

== ENCOUNTER → 2024-12-25 13:20 | Outpatient (BNVA) | payer MEDICARE, MEDICAID, SELFPAY | PROVIDERS: PCP Nurse Practitioner Family; Visit Provider Nurse Practitioner Family | DX: E03.9 Hypothyroidism, unspecified (principal); E04.1 Nontoxic single thyroid nodule | CPT/HCPCS: 80053; 80061; 82306; 84443; 85025 ==

== ENCOUNTER → 2025-02-11 12:46 | Outpatient (BNVA) | payer MEDICARE, SELFPAY | PROVIDERS: PCP Nurse Practitioner Family; Visit Provider Nurse Practitioner Family | DX: D48.5 Neoplasm of uncertain behavior of skin (principal); L21.8 Other seborrheic dermatitis; L81.4 Other melanin hyperpigmentation | CPT/HCPCS: 99204 ==